=== PATIENT | male | born 1990 | race Caucasian/White ===

== ENCOUNTER 2019-08-20 14:40 | Emergency (ER) | payer OTHER, SELFPAY ==
[2019-08-20 14:44] VITALS: BP 141/85; PULSE 72; RESP 16; TEMP 36.6; O2SAT 100
--- NOTE | 2019-08-20 14:53 | ED.GENADULT ---
HPI - General Adult General Chief complaint: Unspecified Stated complaint: prescription refill Time Seen by Provider: 08/20/19 14:50 Source: patient and RN notes reviewed Mode of arrival: ambulatory Limitations: no limitations History of Present Illness HPI narrative: Patient presents today requesting a refill on his medications. He ran out of all 3 yesterday and has an appointment in 3 days to see his doctor for refills. He needs Wellbutrin 150 mg daily, sertraline 100 mg daily, and BuSpar 15 mg twice daily. Denies any current exacerbation of symptoms or withdrawal symptoms. Denies any current HI, SI, hallucinations. MD complaint: Medication refill Related Data Home Medications Medication Instructions Recorded Confirmed Invega Sustenna 08/20/19 blood sugar diagnostic [True 08/20/19 08/20/19 Metrix Glucose Test Strip] blood-glucose meter [True Metrix 08/20/19 08/20/19 Glucose Meter] bupropion HCl mg PO 08/20/19 buspirone 15 mg 08/20/19 insulin glargine [Adrianaaglsoraida Riggs SUBCUT 08/20/19 U-100 Insulin] insulin lispro 08/20/19 pen needle, diabetic [Easy Touch] 08/20/19 08/20/19 sertraline mg 08/20/19 Allergies Allergy/AdvReac Type Severity Reaction Status Date / Time No Known Allergies Allergy Verified 08/20/19 14:49 Review of Systems Review of Systems: Narrative: CONSTITUTIONAL: Denies body aches, fever, chills, or sweats. EYES: Denies visual changes, redness, or discharge. ENT: Denies rhinorrhea, congestion, sore throat, or otalgia. CARDIOVASCULAR: Denies chest pain, palpitations, or edema. RESPIRATORY: Denies cough or dyspnea. GASTROINTESTINAL: Denies abdominal pain, nausea, vomiting, or diarrhea. GENITOURINARY: Denies dysuria or hematuria. SKIN: Denies rash, itching, or wounds. MUSCULOSKELETAL: Denies back pain, joint pain, or myalgia. NEUROLOGIC: Denies headache, numbness, tingling, or weakness. PSYCH: Denies depression or anxiety. [facility] Past Medical History Medical History (Updated 08/20/19 @ 14:58 by Devika Uribe, [employer], ) Alcoholic pancreatitis Bipolar disorder Depression with anxiety DM type 2 (diabetes mellitus, type 2) OCD (obsessive compulsive disorder) Tourettes disease Surgical History Surgical History Hx of appendectomy Social History Social History Smokeless tobacco user: chewing tobacco Alcohol intake: former Substance use: never Comments At time of signature, I have reviewed and agree with nursing past medical, surgical, social and family history unless otherwise noted. Please see nursing chart for further information. There is no relevant family history pertinent to the presenting complaint Exam Narrative: Exam Narrative: GENERAL: Well-appearing, well-nourished, and in no acute distress. HEAD: Normocephalic, atraumatic. EYES: EOMI. No redness or drainage. Conjunctivae normal. ENT: Mucous membranes pink and moist. NECK: Normal AROM. EXTREMITIES: Normal range of motion. No edema. SKIN: Warm, dry, no rash. Capillary refill normal. Normal skin turgor. NEURO: No focal deficits. Alert and oriented x3. Gait steady. PSYCH: Normal affect. No signs of depression or anxiety. Course Vital Signs Vital signs: Vital Signs Temperature 97.8 F 08/20/19 14:44 Pulse Rate 72 08/20/19 14:44 Respiratory Rate 16 08/20/19 14:44 Blood Pressure 141/85 H 08/20/19 14:44 Pulse Oximetry 100 08/20/19 14:44 Temperature 97.8 F 08/20/19 14:44 Pulse Rate 72 08/20/19 14:44 Respiratory Rate 16 08/20/19 14:44 Blood Pressure 141/85 H 08/20/19 14:44 Pulse Oximetry 100 08/20/19 14:44 Reviewed. Pt has been instructed to follow up with his PCP regarding his elevated blood pressure today. Medical Decision Making Differential Diagnosis Differential Diagnosis: Medication refill, anxiety, depression, Exacerbation of Tourette's, exacerbation
== END 2019-08-20 15:18 | disposition home or self-care (01) ==
PROVIDERS: Emergency Provider Nurse Practitioner
DX: Z76.0 Encounter for issue of repeat prescription (principal); E11.9 Type 2 diabetes mellitus without complications; Z79.4 Long term (current) use of insulin
CPT/HCPCS: 99211; G0463

== ENCOUNTER 2019-11-09 13:32 | Emergency (ER) | payer OTHER, SELFPAY ==
[2019-11-09 13:37] VITALS: BP 65/46; PULSE 71; RESP 18; TEMP 36.6; O2SAT 100
--- NOTE | 2019-11-09 13:40 | ED.EAR ---
HPI - Ear Problem General Stated complaint: right ear pain/feels like liquid in ear Time Seen by Provider: 11/09/19 13:40 Source: patient and RN notes reviewed History of Present Illness HPI Narrative: Patient is a 29-year-old male who initially came to the urgent care with complaints of ear pain and the feeling of liquid behind the ear . By the time patient was in triage he was experiencing an obvious seizure. Patient was unresponsive. Patient was unable to give a complete ROS. Some parts of this dictation were generated by voice recognition software and may contain typographical and/or grammatical inaccuracies. Related Data Home Medications Medication Instructions Recorded Confirmed Invega Sustenna 08/20/19 blood sugar diagnostic [True 08/20/19 08/20/19 Metrix Glucose Test Strip] blood-glucose meter [True Metrix 08/20/19 08/20/19 Glucose Meter] bupropion HCl mg PO 08/20/19 buspirone 15 mg 08/20/19 insulin glargine [Basaglar KwikPen SUBCUT 08/20/19 U-100 Insulin] insulin lispro 08/20/19 pen needle, diabetic [Easy Touch] 08/20/19 08/20/19 sertraline mg 08/20/19 Allergies Allergy/AdvReac Type Severity Reaction Status Date / Time No Known Allergies Allergy Verified 08/20/19 14:49 Review of Systems Review of Systems: Narrative: Patient was unresponsive during initial assessment and unable to obtain ROS. All other systems reviewed are negative, except as documented in HPI. [facility] Past Medical History Medical History (Updated 11/09/19 @ 13:56 by JERRY Barillas) Alcoholic pancreatitis Bipolar disorder Depression with anxiety DM type 2 (diabetes mellitus, type 2) OCD (obsessive compulsive disorder) Tourettes disease Surgical History Surgical History Hx of appendectomy Social History Social History Smokeless tobacco user: chewing tobacco Alcohol intake: former Substance use: never Gender identity (if verbalized by the patient): Male Exam Narrative: Exam Narrative: GENERAL: This is a well-nourished, well-developed patient, diaphoretic HEAD: normocephalic, atraumatic. EYES: PERRL. Sclera clear/white. Vision is grossly intact. EARS: External ears normal NOSE: External nose normal with no obvious nasal discharge, nares without redness, no rhinorrhea. THROAT: Mucous membranes moist NECK: Neck supple CARDIOVASCULAR: Regular rate SKIN: Diaphoretic and flushed NEURO: Seizure activity/postictal during initial assessment EXTREMITIES: No clubbing, cyanosis, or edema. Course Vital Signs Vital signs: Vital Signs Temperature 97.9 F 11/09/19 13:37 Pulse Rate 71 11/09/19 13:37 Respiratory Rate 18 11/09/19 13:37 Blood Pressure 65/46 L 11/09/19 13:37 Pulse Oximetry 100 11/09/19 13:37 Temperature 97.9 F 11/09/19 13:37 Pulse Rate 120 H 11/09/19 13:42 Respiratory Rate 14 11/09/19 13:42 Blood Pressure 109/79 11/09/19 13:42 Pulse Oximetry 99 11/09/19 13:42 Reviewed Transfer Transfered to: [facility] Transportation: ALS Transfer rationale: Seizure activity/diaphoretic Accepting physician: Dr. Beatty Medical Decision Making MDM Narrative Medical decision making narrative: At the time of assessment, while still in triage, patient was having an active seizure and becoming postictal after approximately 1 minute. Patient's blood sugar was 147. Initial blood pressure was low, second blood pressure reading was 109/79. 14 respiration. Patient was unresponsive with initial contact and able to answer simple questions after approximately 1 to 2 minutes. Patient still confused upon discharge with EMS. Patient will go to [facility]. Report given to Devika Reyes RN and accepted by Dr. Beatty. Patient was unstable at the time of discharge. Differential Diagnosis Differential Diagnosis: Hypoglycemia, seizure, URI Vital Signs V
[2019-11-09 13:42] VITALS: BP 109/79; PULSE 120; RESP 14; O2SAT 99
[2019-11-09 13:48] LABS: Glucose Point of Care 147 (65-105)
--- NOTE | 2019-11-09 15:23 | PC.NURSE ---
[id number] this R.N. gave mother, Cora Fernandez, her car in[place].
== END 2019-11-09 13:56 | disposition short-term general hospital (02) ==
PROVIDERS: Emergency Provider Nurse Practitioner Family; PCP Family Medicine
DX: R56.9 Unspecified convulsions (principal); F32.9 Major depressive disorder, single episode, unspecified; F41.9 Anxiety disorder, unspecified; E11.9 Type 2 diabetes mellitus without complications; F95.2 Tourette's disorder; F17.220 Nicotine dependence, chewing tobacco, uncomplicated
CPT/HCPCS: 82948; 99215; G0463

== ENCOUNTER 2020-04-14 15:14 | Emergency (ER) | payer OTHER, SELFPAY ==
[2020-04-14 15:40] VITALS: BP 140/93; PULSE 76; RESP 18; TEMP 36.7; O2SAT 99
--- NOTE | 2020-04-14 16:08 | ED.WOUNDLAC ---
HPI - Wound/Laceration General Chief Complaint: Wound/Laceration Stated Complaint: Infection In Leg Time Seen by Provider: 04/14/20 15:44 Source: patient, RN notes reviewed and old records reviewed Mode of arrival: ambulatory Limitations: no limitations History of Present Illness HPI narrative: Patient presents today with an infection to his right thigh x1 week that has been worsening since onset. States he has been picking the area and reports that he believes there is tunneling to the wound. States he also has an area to his scalp and chin as well as possibly inside his nose. 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 Currently rates his pain to the thigh 08/25. He has tried no [id number] interventions prior to arrival. No recent antibiotic use or fever. History of bipolar disorder, Tourette's syndrome, OCD. Related Data Home Medications Medication Instructions Recorded Confirmed Ramon Malave See Rx Instructions .ROUTE .COMPLEX 08/20/19 11/09/19 bupropion HCl 150 mg PO BID 08/20/19 11/09/19 insulin glargine [Basaglar KwikPen See Rx Instructions .ROUTE .COMPLEX 08/20/19 11/09/19 U-100 Insulin] insulin lispro See Rx Instructions .ROUTE .COMPLEX 08/20/19 11/09/19 buspirone See Rx Instructions .ROUTE .COMPLEX 11/09/19 11/09/19 buspirone See Rx Instructions .ROUTE .COMPLEX 11/09/19 11/09/19 famotidine 40 mg PO DAILY 11/09/19 11/09/19 [id number] [Creon] See Rx Instructions .ROUTE .COMPLEX 11/09/19 11/09/19 terbinafine HCl 250 mg PO DAILY 11/09/19 11/09/19 tramadol 50 mg PO BID PRN 11/09/19 11/09/19 Allergies Allergy/AdvReac Type Severity Reaction Status Date / Time No Known Allergies Allergy Verified 04/14/20 15:29 Review of Systems Review of Systems: Narrative: CONSTITUTIONAL: Denies body aches, fever, chills, or sweats. EYES: Denies visual changes, redness, or discharge. ENT: Denies rhinorrhea, congestion, sore throat, or otalgia. CARDIOVASCULAR: Denies chest pain, palpitations, or edema. RESPIRATORY: Denies cough or dyspnea. GASTROINTESTINAL: Denies abdominal pain, nausea, vomiting, or diarrhea. GENITOURINARY: Denies dysuria or hematuria. SKIN: Denies rash, itching. + Wound to right thigh, scalp, chin MUSCULOSKELETAL: Denies back pain, joint pain, or myalgia. NEUROLOGIC: Denies headache, numbness, tingling, or weakness. PSYCH: Denies depression or anxiety. [facility] Past Medical History Medical History (Updated 04/14/20 @ 16:11 by Devika Uribe, [facility], ) Alcoholic pancreatitis Bipolar disorder Depression with anxiety DM type 2 (diabetes mellitus, type 2) OCD (obsessive compulsive disorder) Tourettes disease Surgical History Surgical History Hx of appendectomy Social History Social History Smokeless tobacco user: chewing tobacco Alcohol intake: former Substance use: never Gender identity (if verbalized by the patient): Male Comments At time of signature, I have reviewed and agree with nursing past medical, surgical, social and family history unless otherwise noted. Please see nursing chart for further information. There is no relevant family history pertinent to the presenting complaint Exam Narrative: Exam Narrative: GENERAL: Well-appearing, well-nourished, and in no acute distress. HEAD: Normocephalic, atraumatic. EYES: EOMI. No redness or drainage. Conjunctivae normal. ENT: Mucous membranes pink and moist. Nares clear. There is some irritation to the left nare, however, I am unsure if this is because patient has been picking the inside of his nose like he is done after my arrival in the exam room. No honey crusting or obvious signs of cellulitis are noted to the external nose. No rhinorrhea. NECK: Normal AROM. CHEST: No respiratory distress. EXTREMITIES: Normal range of motion. No edema. SKIN: Warm, no rash. Capillary refill normal. Normal skin turgor. Patient has a 9 x 7cm a
== END 2020-04-14 16:15 | disposition home or self-care (01) ==
PROVIDERS: Emergency Provider Nurse Practitioner
DX: L03.115 Cellulitis of right lower limb (principal); S71.101A Unspecified open wound, right thigh, initial encounter; X58.XXXA Exposure to other specified factors, initial encounter; E11.9 Type 2 diabetes mellitus without complications; F95.2 Tourette's disorder; F32.9 Major depressive disorder, single episode, unspecified; Z86.14 Personal history of Methicillin resistant Staphylococcus aureus infection
CPT/HCPCS: 99213; G0463

== ENCOUNTER 2020-08-19 04:44 | Emergency (ER) | payer OTHER, SELFPAY ==
--- NOTE | ~2020-08-19 | CT_ITS ---
EXAMINATION: CT abdomen pelvis w con INDICATION: Nausea, vomiting, diarrhea, left lower quadrant pain TECHNIQUE: Computed tomographic images of the abdomen and pelvis were obtained after the administrati on of 100 cc of Omnipaque 350 intravenous contrast. The dose-length product (DLP) was 1065.37 mGy-cm. Automated exposure control and iterative reconstruction technique were employed. COMPARISON: 03/05/2019 FINDINGS: Minimal dependent atelectasis is present in the lung bases. The heart size is normal. The l iver, spleen, pancreas, and adrenal glands are normal. There is mild distention of the gallbladder. T he kidneys are unremarkable. There is an approximately 4.7 x 1.9 cm infiltrating soft tissue mass in the small bowel mesentery (image 80). There is mild mesenteric lymphadenopathy. There is no free intr aperitoneal gas or evidence of bowel obstruction. The appendix is surgically absent. The visualized o sseous structures are unremarkable. IMPRESSION: 1. Mild gallbladder distention. Correlate for right upper quadrant pain. 2. Infiltrating soft tissue mass of the small bowel mesentery which could reflect desmoid tumor, carc inoid tumor, or sequela of prior infection/inflammation such as pancreatitis. Reviewed, dictated and finalized at location A. IMPRESSION: 1. Mild gallbladder distention. Correlate for right upper quadrant pain. 2. Infiltrating soft tissue mass of the small bowel mesentery which could refle ct desmoid tumor, carcinoid tumor, or sequela of prior infection/inflammation s uch as pancreatitis.
[2020-08-19 04:41] VITALS: BP 130/88; PULSE 115; RESP 20; TEMP 36.2; O2SAT 99
--- NOTE | 2020-08-19 04:50 | PC.NURSE ---
pt here c ems reporting called for llq pain with assoc. diarrhea and nausea. pt reports x 1 episode of diarrrhea. last etoh reported 2017
[2020-08-19] MEDS: MORPHINE SULFATE (*CRX) 4 MG/ML INJ IV PUSH (05:11)
[2020-08-19] MEDS: SODIUM CHLORIDE 0.9% IV 1,000 ML 999 ML IV CONT (05:12)
[2020-08-19] MEDS: ONDANSETRON INJ 4 MG/2 ML VIAL IV PUSH (05:12)
[2020-08-19 05:14] LABS: Basophils Percent Auto 0.6 % (0.2-1.2); Eosinophils Absolute Auto 0.1 K/mm3 (0-0.3); Eosinophils Percent Auto 1.7 % (0-4.4); Hematocrit 41.9 % (42.0-52.0); Hemoglobin 13.9 g/dL (14.0-18.0); Immature Granulocyte Absolute 0.01 K/mm3 (0.00-0.031); Immature Granulocyte Percent A 0.2 % (0-0.5); Lymphocytes Absolute Auto 1.75 K/mm3 (0.9-3.2); Lymphocytes Percent Auto 26.5 % (18.3-44.2); Mean Corpuscular HGB Conc 33.2 g/dl (32-36); Mean Corpuscular Hemoglobin 27.9 pg (26-34); Mean Corpuscular Volume 84.1 fl (80-100); Mean Platelet Volume 9.3 fl (7.4-10.4); Monocytes Absolute Auto 0.4 K/mm3 (0.1-0.6); Monocytes Percent Auto 6.1 % (2.6-8.5); Neutrophils Absolute Auto 4.3 K/mm3 (1.3-6.7); Neutrophils Percent Auto 64.9 % (45.5-73.1); Platelet Count Result 200 k/mm3 (150-375); Red Blood Count 4.98 M/mm3 (4.6-6.20); Red Cell Distribution Width 12.6 % (11.5-14.5); White Blood Count 6.6 K/mm3 (4.5-10.0)
[2020-08-19 05:22] LABS: Alanine Aminotransferase 17 U/L (4-50); Albumin Level 4.6 g/dL (3.5-5.1); Alkaline Phosphatase 93 U/L (38-126); Anion Gap 7 mmol/L (8-16); Aspartate Amino Transferase 20 U/L (17-59); Bilirubin,Total 0.4 mg/dL (0.2-1.3); Blood Urea Nitrogen 15 mg/dL (9-20); Calcium 9.8 mg/dL (8.4-10.2); Carbon Dioxide 28 mmol/L (22-30); Chloride 106 mmol/L (98-107); Estimated CRCL calculation 103 ml/min; Estimated Glomerular Filt Rate > 60; Glucose 93 mg/dL (75-110); Lipase 24 U/L (23-300); Potassium 3.6 mmol/L (3.4-5.0); Sodium 141 mmol/L (137-145)
[2020-08-19 05:57] VITALS: BP 128/80; PULSE 94; RESP 18; O2SAT 98
--- NOTE | 2020-08-19 06:32 | ED.GENADULT ---
HPI - General Adult General Chief complaint: Abdominal Pain Stated complaint: abd pain Time Seen by Provider: 08/19/20 04:46 History of Present Illness HPI narrative: Patient is a 30-year-old male with history of chronic pancreatitis who presents ER with abdominal cramping. Mainly in the epigastrium and bilateral lower quadrants. No radiation. Sudden onset 1 hour prior to arrival. Mild nausea without vomiting. No fevers or chills or sweats. No aggravating or alleviating factors. Has not been drinking alcohol. Also reports some chronic chest pain for which she sees a GI specialist at [facility]. Patient reports soft tissue tumor of unknown location that one of his doctors is following. Related Data Home Medications Medication Instructions Recorded Confirmed Invega Gianaenna See Rx Instructions .ROUTE .COMPLEX 08/20/19 11/09/19 bupropion HCl 150 mg PO BID 08/20/19 11/09/19 insulin glargine [Basaglar KwikPen See Rx Instructions .ROUTE .COMPLEX 08/20/19 11/09/19 U-100 Insulin] insulin lispro See Rx Instructions .ROUTE .COMPLEX 08/20/19 11/09/19 buspirone See Rx Instructions .ROUTE .COMPLEX 11/09/19 11/09/19 buspirone See Rx Instructions .ROUTE .COMPLEX 11/09/19 11/09/19 famotidine 40 mg PO DAILY 11/09/19 11/09/19 [id number] [Creon] See Rx Instructions .ROUTE .COMPLEX 11/09/19 11/09/19 terbinafine HCl 250 mg PO DAILY 11/09/19 11/09/19 tramadol 50 mg PO BID PRN 11/09/19 11/09/19 Allergies Allergy/AdvReac Type Severity Reaction Status Date / Time No Known Allergies Allergy Verified 04/14/20 15:29 Review of Systems Review of Systems: All systems reviewed & are unremarkable except as noted in HPI and below Constitutional: Constitutional: Denies chills, Denies fever(s) and Denies weakness ENT: Denies nasal congestion and Denies sore throat Cardiovascular: Cardiovascular: Denies chest pain and Denies radiating jaw, neck or arm pain Gastrointestinal: Gastrointestinal: Reports abdominal pain, Reports nausea and Denies vomiting [facility] Past Medical History Medical History (Updated 08/19/20 @ 06:42 by Terry Hayes MD) Alcoholic pancreatitis Bipolar disorder Depression with anxiety DM type 2 (diabetes mellitus, type 2) OCD (obsessive compulsive disorder) Tourettes disease Surgical History Surgical History Hx of appendectomy Social History Social History Smokeless tobacco user: chewing tobacco Alcohol intake: former Substance use: never Gender identity (if verbalized by the patient): Male Exam Narrative: Exam Narrative: GENERAL: Uncomfortable-appearing, well-nourished, and in no acute distress. HEAD: Normocephalic, atraumatic. ENT: Mucous membranes moist. CHEST: Clear to auscultation. No respiratory distress. HEART: Regular rate and rhythm. Normal peripheral pulses. ABDOMEN: Soft, tender palpation bilateral lower quadrants and epigastrium with voluntary guarding nondistended. EXTREMITIES: Normal range of motion. No edema. SKIN: Warm, dry, no rash. NEURO: Alert and oriented x3. PSYCH: Normal mood and affect. Course Course Emergency Course: Symptoms improved with medications and fluids. Informed of CT and lab results. Discharge home. Vital Signs Vital signs: Vital Signs Temperature 97.1 F L 08/19/20 04:41 Pulse Rate 115 H 08/19/20 04:41 Respiratory Rate 20 08/19/20 04:41 Blood Pressure 130/88 08/19/20 04:41 Pulse Oximetry 99 08/19/20 04:41 Temperature 97.1 F L 08/19/20 04:41 Pulse Rate 94 08/19/20 05:57 Respiratory Rate 18 08/19/20 05:57 Blood Pressure 128/80 08/19/20 05:57 Pulse Oximetry 98 08/19/20 05:57 Medical Decision Making Vital Signs Vital Signs: Vital Signs Temperature 97.1 F L 08/19/20 04:41 Pulse Rate 115 H 08/19/20 04:41 Respiratory Rate 20 08/19/20 04:41 Blood Pressure 130/88 08/19/20 04:41 Pulse Oximetry 99
== END 2020-08-19 07:01 | disposition home or self-care (01) ==
PROVIDERS: Emergency Provider Emergency Medicine
DX: R10.13 Epigastric pain (principal); F31.9 Bipolar disorder, unspecified; E11.9 Type 2 diabetes mellitus without complications; F41.9 Anxiety disorder, unspecified; Z79.4 Long term (current) use of insulin
CPT/HCPCS: 36415; 74177; 80053; 83690; 85025; 96361; 96374; 96375; 99284; J2270; J2405; J7030; Q9967

== ENCOUNTER 2020-08-30 03:28 | Emergency (ER) | payer OTHER, SELFPAY ==
--- NOTE | ~2020-08-30 | XR_ITS ---
EXAMINATION: XR chest 1V portable DATE: 08/30/2020 04:15 INDICATION: Chest pain. TECHNIQUE: A single frontal view of the chest was obtained. COMPARISON: CT abdomen and pelvis 08/19/2020 FINDINGS: There is mild atelectasis at right lung base. No pleural effusion or pneumothorax. The hear t size is normal. IMPRESSION: 1. Mild atelectasis at right lung base. Reviewed, dictated and finalized at location A.
[2020-08-30 03:36] VITALS: BP 132/90; PULSE 89; RESP 18; TEMP 36.4; O2SAT 98
--- NOTE | 2020-08-30 03:36 | ECG_ITS ---
Measurements Intervals Remlap Rate: 117 P: 35 GA: 157 QRS: 48 QRSD: 114 T: 33 QT: 341 QTc: 476 Interpretive Statements SINUS TACHYCARDIA INTRAVENTRICULAR CONDUCTION DELAY MINIMAL Q WAVES- INFERIOR LEADS BORDERLINE T WAVE ABNORMALITY- ANT/HIGH LAT LEADS ABNORMAL ECG Electronically Signed On 08-30-2020 8:15:29 CDT by Gildardo Casey D.O.
--- NOTE | 2020-08-30 03:50 | ED.GENADULT ---
HPI - General Adult General Chief complaint: Unspecified Stated complaint: Chest pain Source: patient Mode of arrival: ambulatory History of Present Illness HPI narrative: Christiano is a 30M with a PMH of alcoholic pancreatitis, chronic pancreatitis, chewing tobacco use, bipolar disorder, anxiety, OCD, and DMII that presented to the ED with chest pain. He has a squeezing chest pain that radiates down his left arm. It is associated with nausea, but no vomiting. He has lightheadedness but no syncope. He took a Vicodin but this did not help. It is better with rest. Related Data Home Medications Medication Instructions Recorded Confirmed Invega Sustenna See Rx Instructions .ROUTE .COMPLEX 08/20/19 08/30/20 bupropion HCl 150 mg PO BID 08/20/19 08/30/20 insulin lispro See Rx Instructions .ROUTE .COMPLEX 08/20/19 08/30/20 buspirone See Rx Instructions .ROUTE .COMPLEX 11/09/19 08/30/20 buspirone See Rx Instructions .ROUTE .COMPLEX 11/09/19 08/30/20 famotidine 40 mg PO DAILY 11/09/19 08/30/20 [id number] [Creon] See Rx Instructions .ROUTE .COMPLEX 11/09/19 08/30/20 tramadol 50 mg PO BID PRN 11/09/19 08/30/20 Allergies Allergy/AdvReac Type Severity Reaction Status Date / Time No Known Allergies Allergy Verified 04/14/20 15:29 Review of Systems Constitutional: Constitutional: Reports no additional constitutional complaints and Denies body ache(s) Eyes: Eyes: Reports no additional eye complaints ENT: Reports system reviewed and no additional complaints, except as documented Cardiovascular: Cardiovascular: Reports as per HPI Respiratory: Respiratory: Reports no additional respiratory complaints Gastrointestinal: Gastrointestinal: Reports no additional gastrointestinal complaints Genitourinary: Genitourinary: Reports no additional male genitourinary complaints Musculoskeletal: Musculoskeletal: Reports no additional musculoskeletal complaints Integumentary/Breasts: Skin/Breast: Reports system reviewed and no additional complaints, except as docu Neurologic: Reports system reviewed and no additional complaints, except as documented Psychiatric: Psychiatric: Reports no additional psychiatric complaints Endocrine: Endocrine: Reports no additional endocrine complaints Hematologic/Lymphatic: Hematologic/Lymphatic: Reports no additional hematologic/lymphatic complaints Allergic/Immunologic: Allergic/Immunologic: Reports no additional allergic/immunologic complaints PMFSH Past Medical History Medical History Alcoholic pancreatitis Bipolar disorder Depression with anxiety DM type 2 (diabetes mellitus, type 2) OCD (obsessive compulsive disorder) Tourettes disease Surgical History Surgical History Hx of appendectomy Social History Social History Smokeless tobacco user: chewing tobacco Alcohol intake: former Substance use: never Gender identity (if verbalized by the patient): Male Exam Const: General: cooperative, healthy appearing, comfortable and no acute distress HENMT: Head: normal to inspection, normocephalic and atraumatic Eyes: General: appearance normal, both eyes and all related structures Neck: Neck: normal visual inspection Chest: Chest palpation & inspection: normal inspection of the chest Resp: Effort & Inspection: normal respiratory effort Auscultation: clear to auscultation bilaterally Cardio: Rate: regular rate Rhythm: regular rhythm Peripheral pulses: Peripheral pulses 2+ throughout GI: Inspection: normal to inspection GI Palp: No abdominal tenderness Auscultation: normal bowel sounds Skin: General skin exam: normal color Lesions: no lesions Rashes: no rashes Neuro: General: oriented to person, oriented to place and oriented to time Cranial nerves: Yes CN's II-XII intact bilaterally Extrem: General:
[2020-08-30] MEDS: NITROGLYCERIN SL 0.4 MG TABLET SUBLINGUAL ×2 (03:57→04:11)
[2020-08-30 04:03] LABS: Basophils Absolute Auto 0.03 K/mm3 (0.00-0.10); Basophils Percent Auto 0.4 % (0.0-1.0); Eosinophils Percent Auto 1.5 % (1.0-6.0); Hematocrit 40.3 % (40.0-54.0); Hemoglobin 13.5 g/dL (14.0-18.0); Immature Granulocyte Absolute 0.03 K/mm3 (0.00-0.00); Immature Granulocyte Percent A 0.4 % (0.0-0.0); Lymphocytes Absolute Auto 0.99 K/mm3 (1.10-4.50); Lymphocytes Percent Auto 14.6 % (18.0-42.0); Mean Corpuscular HGB Conc 33.5 g/dL (32.0-36.0); Mean Corpuscular Hemoglobin 28.1 pg (27.0-31.0); Mean Platelet Volume 9.5 fl (8.7-11.0); Monocytes Absolute Auto 0.33 K/mm3 (0.10-0.90); Monocytes Percent Auto 4.9 % (2.0-11.0); Neutrophils Absolute Auto 5.3 K/mm3 (1.7-7.2); Neutrophils Percent Auto 78.2 % (50.0-70.0); Platelet Count Result 189 K/mm3 (150-420); Red Cell Distribution Width 13.1 % (11.6-14.4); White Blood Count 6.8 K/mm3 (4.8-10.8)
[2020-08-30 04:13] VITALS: BP 119/71; PULSE 110; RESP 18; O2SAT 95
--- NOTE | 2020-08-30 04:13 | PC.NURSE ---
patient sleeping, woke to take vitals and patient states chest tightness returning, MD aware 2nd nitro given
[2020-08-30 04:17] LABS: Prothrombin Time 10.2 Seconds (9.50-12.10)
[2020-08-30 04:26] LABS: Alanine Aminotransferase 21 U/L (16-63); Albumin Level 3.8 g/dL (3.4-5.0); Alkaline Phosphatase 84 U/L (46-116); Anion Gap 12 mmol/L (8-16); Aspartate Amino Transferase < 10 U/L (15-37); Bilirubin,Total 0.2 mg/dL (0.00-1.00); Blood Urea Nitrogen 16 mg/dL (7-18); Calcium 8.8 mg/dL (8.5-10.1); Carbon Dioxide 25 mmol/L (21-32); Chloride 100 mmol/L (98-108); Estimated CRCL calculation 89 ml/min; Estimated Glomerular Filt Rate > 60; Glucose 393 mg/dL (70-99); Lipase 35 U/L (73-393); NT Pro B Type Natriuretic Pept 12 pg/mL (0-125); Osmolality Calculated 301 mOsm/kg (285-295); Sodium 137 mmol/L (136-145); Total Protein 6.9 g/dL (6.4-8.2)
[2020-08-30 04:28] LABS: Troponin I < 4.0 ng/L (0.00-60.4)
--- NOTE | 2020-08-30 04:42 | PC.NURSE ---
pt sleeping no pain
[2020-08-30] MEDS: MAG HYDROX/ALUMINUM HYD/SIMETH 30 ML, PHENobarb/HYOSCY/ATROPINE/SCOP 32.4 MG, LIDOCAINE... PO (04:49)
--- NOTE | 2020-08-30 04:52 | PC.NURSE ---
patient sleeping woke for GI cocktail
[2020-08-30 05:01] VITALS: BP 105/60; PULSE 92; RESP 20; O2SAT 95
[2020-08-30] MEDS: LORazepam INJ (*CRX) 2 MG/ML VIAL 1 MG IV PUSH (05:09)
[2020-08-30 05:32] VITALS: BP 130/88; PULSE 90; RESP 20; TEMP 36.6; O2SAT 98
== END 2020-08-30 05:58 | disposition home or self-care (01) ==
PROVIDERS: Emergency Provider Family Medicine
DX: R07.9 Chest pain, unspecified (principal)
CPT/HCPCS: 36415; 71045; 80053; 83690; 83880; 84484; 85025; 85610; 93005; 96374; 99283; 99284; A9270; J2060

== ENCOUNTER 2020-09-03 03:08 | Emergency (ER) | payer OTHER, SELFPAY ==
--- NOTE | ~2020-09-03 | CT_ITS ---
EXAMINATION: CT abdomen pelvis w con DATE: 09/03/2020 05:45 INDICATION: Abdominal pain TECHNIQUE: Computed tomography (CT) of the abdomen and pelvis was performed with 100 cc Omnipaque 350 intravenous contrast. Automated exposure control and iterative reconstruction technique were employe d. Exam dose: 1235.47 mGy-cm total exam DLP. COMPARISON: 08/2020 CT abdomen pelvis FINDINGS: Normal heart size. No pericardial or pleural effusion. The lung bases are clear of infiltra te or consolidation. The liver, spleen, gallbladder, bile ducts, pancreas and pancreatic duct as well as adrenal glands an d kidneys are unremarkable. Normal caliber of the abdominal aorta. There is no significant change of the soft tissue density within the mesenteric fat at the root of th e mesentery since 08/19/2020. There are multiple shotty nonenlarged mesenteric lymph nodes. Differentia l diagnosis includes desmoid tumor, carcinoid tumor, metastatic tumor infiltration from pancreatic, g astric or colon cancer, lymphoma or infectious or inflammatory change including pancreatitis, scleros ing mesenteritis. Status post appendectomy. Mild diverticulosis of left and right colon. IMPRESSION: No significant change of soft tissue infiltration of mesentery since 08/19/2020; differenti al diagnosis given above Reviewed, dictated and finalized at [facility]. Reviewed, dictated and finalized at [facility]. IMPRESSION: No significant change of soft tissue infiltration of mesentery sinc e 08/19/2020; differential diagnosis given above
[2020-09-03 03:13] VITALS: BP 145/98; PULSE 100; RESP 20; TEMP 36.3; O2SAT 100
--- NOTE | 2020-09-03 03:18 | ED.GENADULT ---
HPI - General Adult General Chief complaint: Abdominal Pain <Jorge Tomlin MD - Last Filed: 09/03/20 03:19> Stated complaint: abd pain and neck pain ? <Jorge Tomlin MD - Last Filed: 09/03/20 03:19> Time Seen by Provider: 09/03/20 03:13 <Jorge Tomlin MD - Last Filed: 09/03/20 03:19> History of Present Illness HPI narrative: Patient 30-year-old gentleman who presents to emergency department with chief complaint of abdominal pain. Patient reports he has history of pancreatitis and started having pain in the epigastrium and left upper quadrant the patient states that it is sharp reports not improved by anything nor is it worsened by anything the patient reports has had some nausea with this reports this feels similar to whenever he has had pancreatitis before in the past. Patient reports he was seen in the emergency department last a day or 2 for similar symptoms <Jorge Tomlin MD - Last Filed: 09/03/20 03:19> Related Data Home medications: Home Medications Medication Instructions Recorded Confirmed Ramon Malave See Rx Instructions .ROUTE .COMPLEX 08/20/19 08/30/20 bupropion HCl 150 mg PO BID 08/20/19 08/30/20 insulin lispro See Rx Instructions .ROUTE .COMPLEX 08/20/19 08/30/20 buspirone See Rx Instructions .ROUTE .COMPLEX 11/09/19 08/30/20 buspirone See Rx Instructions .ROUTE .COMPLEX 11/09/19 08/30/20 famotidine 40 mg PO DAILY 11/09/19 08/30/20 [id number] [Creon] See Rx Instructions .ROUTE .COMPLEX 11/09/19 08/30/20 tramadol 50 mg PO BID PRN 11/09/19 08/30/20 <Jorge Tomlin MD - Last Filed: 09/03/20 03:19> Allergies/adverse reactions: Allergies Allergy/AdvReac Type Severity Reaction Status Date / Time No Known Allergies Allergy Verified 04/14/20 15:29 <Jorge Tomlin MD - Last Filed: 09/03/20 03:19> Review of Systems Review of Systems: Narrative: A 10 system review of systems was completed on the patient and is negative except for what is stated in the HPI. Nursing and ancillary documentation was reviewed. <Jorge Tomlin MD - Last Filed: 09/03/20 03:19> PMFSH Past Medical History Medical History: Medical History Alcoholic pancreatitis Bipolar disorder Depression with anxiety DM type 2 (diabetes mellitus, type 2) OCD (obsessive compulsive disorder) Tourettes disease <Jorge Tomlin MD - Last Filed: 09/03/20 03:19> Surgical History Surgical History: Surgical History Hx of appendectomy <Jorge Tomlin MD - Last Filed: 09/03/20 03:19> Social History Social History: Social History Smokeless tobacco user: chewing tobacco Alcohol intake: former Substance use: never Gender identity (if verbalized by the patient): Male <Jorge Tomlin MD - Last Filed: 09/03/20 03:19> Exam Narrative: Exam Narrative: GENERAL: Well-appearing, well-nourished, and in no acute distress. HEAD: Normocephalic, atraumatic. EYES: PERRLA and EOMI. ENT: Nares clear, no rhinorrhea or epistaxis. Mucous membranes moist. NECK: Supple. CHEST: Clear to auscultation. No respiratory distress. HEART: Regular rate and rhythm. No murmur heard. Normal peripheral pulses. ABDOMEN: Soft, tender to palpation in the epigastrium and left upper quadrant, nondistended, normal active bowel sounds. EXTREMITIES: Normal range of motion. No edema. SKIN: Warm, dry, no rash. NEURO: No focal deficits. Alert and oriented x3. PSYCH: Normal mood and affect. <Jorge Tomlin MD - Last Filed: 09/03/20 03:19> Course Vital Signs Vital signs: Vital Signs Temperature 36.3 C L 09/03/20 03:13 Pulse Rate 100 09/03/20 03:13 Respiratory Rate 20 09/03/20 03:13 Blood Pressure 1
[2020-09-03] MEDS: SODIUM CHLORIDE 0.9% IV 1,000 ML 999 ML IV CONT (03:39)
[2020-09-03] MEDS: ONDANSETRON INJ 4 MG/2 ML VIAL IV PUSH (03:39)
[2020-09-03] MEDS: MORPHINE SULFATE (*CRX) 4 MG/ML INJ IV PUSH ×2 (03:39→05:12)
[2020-09-03 03:46] LABS: Alanine Aminotransferase 19 U/L (4-50); Albumin Level 4.3 g/dL (3.5-5.1); Alkaline Phosphatase 75 U/L (38-126); Anion Gap 8 mmol/L (8-16); Aspartate Amino Transferase 24 U/L (17-59); Bilirubin,Total 0.4 mg/dL (0.2-1.3); Blood Urea Nitrogen 16 mg/dL (9-20); Calcium 9.5 mg/dL (8.4-10.2); Carbon Dioxide 28 mmol/L (22-30); Chloride 101 mmol/L (98-107); Estimated CRCL calculation 88 ml/min; Estimated Glomerular Filt Rate > 60; Ethanol < 10 mg/dL (<10); Glucose 191 mg/dL (65-110); Lipase 39 U/L (23-300); Potassium 4.2 mmol/L (3.4-5.0); Sodium 137 mmol/L (137-145)
[2020-09-03 04:06] VITALS: BP 132/93; PULSE 78; RESP 18; O2SAT 97
[2020-09-03 04:14] LABS: Basophils Percent Auto 0.6 % (0.2-1.2); Eosinophils Absolute Auto 0.2 K/mm3 (0-0.3); Eosinophils Percent Auto 3.1 % (0-4.4); Hematocrit 42.1 % (42.0-52.0); Hemoglobin 13.4 g/dL (14.0-18.0); Immature Granulocyte Absolute 0.02 K/mm3 (0.00-0.031); Immature Granulocyte Percent A 0.3 % (0-0.5); Lymphocytes Absolute Auto 2.25 K/mm3 (0.9-3.2); Lymphocytes Percent Auto 36.5 % (18.3-44.2); Mean Corpuscular HGB Conc 31.8 g/dl (32-36); Mean Corpuscular Hemoglobin 27.8 pg (26-34); Mean Corpuscular Volume 87.3 fl (80-100); Mean Platelet Volume 9.5 fl (7.4-10.4); Monocytes Absolute Auto 0.4 K/mm3 (0.1-0.6); Monocytes Percent Auto 6.3 % (2.6-8.5); Neutrophils Absolute Auto 3.3 K/mm3 (1.3-6.7); Neutrophils Percent Auto 53.2 % (45.5-73.1); Platelet Count Result 200 k/mm3 (150-375); Red Blood Count 4.82 M/mm3 (4.6-6.20); Red Cell Distribution Width 13.2 % (11.5-14.5); White Blood Count 6.2 K/mm3 (4.5-10.0)
[2020-09-03 05:05] VITALS: BP 126/87; PULSE 81; RESP 18; O2SAT 98
[2020-09-03 05:10] LABS: Add Urine Microscopic? NO; Appearance Urine Clear (Clear); Bilirubin Urine Negative (Negative); Blood Urine Negative (Negative); Color Urine Straw (Yellow); Glucose Urine UA Negative (Negative); Ketones Urine Negative (Negative); Leukocyte Esterase Ur Negative LEU/UL (Negative); Nitrate Urine Negative (Negative); Protein Urine Negative (Negative); Specific Grav Ur 1.009 (1.001-1.035); Urobilinogen Urine Negative mg/dL (<2.0)
[2020-09-03] MEDS: diphenhydrAMINE HCl INJ 50 MG/ML VIAL IV PUSH (06:00)
[2020-09-03 06:01] VITALS: BP 131/89; PULSE 89; RESP 18; O2SAT 95
[2020-09-03 08:07] VITALS: BP 110/67; PULSE 80; RESP 16; O2SAT 100
== END 2020-09-03 08:08 | disposition home or self-care (01) ==
PROVIDERS: Emergency Medicine; Emergency Provider Emergency Medicine
DX: K29.70 Gastritis, unspecified, without bleeding (principal); E11.9 Type 2 diabetes mellitus without complications; F17.220 Nicotine dependence, chewing tobacco, uncomplicated; Z79.4 Long term (current) use of insulin
CPT/HCPCS: 36415; 74177; 80053; 80307; 81003; 83690; 85025; 96361; 96374; 96375; 96376; 99284; J1200; J2270; J2405; J7030; Q9967

== ENCOUNTER 2020-10-06 15:06 | Emergency (ER) | payer OTHER, SELFPAY ==
[2020-10-06 15:20] VITALS: BP 117/81; PULSE 97; RESP 18; TEMP 37.1; O2SAT 97
--- NOTE | 2020-10-06 15:56 | ED.SKABFB ---
HPI - Skin/Abscess/Foreign Bdy General Chief complaint: Skin/Abscess/Foreign Body Stated complaint: Sores and pain on left side of Face/ behind Ear Time Seen by Provider: 10/06/20 15:55 Source: patient Mode of arrival: ambulatory Limitations: no limitations History of Present Illness HPI narrative: Christiano Fernandez is a 30 yo male with pancraetitis, OCD, DM, ADHD, Tourettes, here for what he believes to be impetigo and has sores on the left side of his face and behind his ear. He was seen by his primary care physician few weeks ago and given antibiotic ointment probably some type of near mupirocin but the source is not resolved and he is here for further treatment Patient states he saw his primary on Thursday and they gave him some ointment has done nothing for the pain and they have continued to get worse sores almost look shingles like but has been using that cream multiple times a day he states he has never had pain this bad has been laying in bed because of the pain most of the time Related Data Home Medications Medication Instructions Recorded Confirmed Ramon Malave See Rx Instructions .ROUTE .COMPLEX 08/20/19 10/06/20 bupropion HCl 150 mg PO BID 08/20/19 10/06/20 insulin lispro See Rx Instructions .ROUTE .COMPLEX 08/20/19 10/06/20 buspirone See Rx Instructions .ROUTE .COMPLEX 11/09/19 10/06/20 buspirone See Rx Instructions .ROUTE .COMPLEX 11/09/19 10/06/20 famotidine 40 mg PO DAILY 11/09/19 10/06/20 [id number] [Creon] See Rx Instructions .ROUTE .COMPLEX 11/09/19 10/06/20 tramadol 50 mg PO BID PRN 11/09/19 10/06/20 Allergies Allergy/AdvReac Type Severity Reaction Status Date / Time No Known Allergies Allergy Verified 10/06/20 15:21 Review of Systems Review of Systems: CONSTITUTIONAL: Denies fever, chills, sweats. EYES: Denies visual changes, redness, discharge. ENT: Denies rhinorrhea, congestion, sore throat, otalgia. CARDIOVASCULAR: Denies chest pain, palpitations, edema. RESPIRATORY: Denies dyspnea, wheezing, cough GASTROINTESTINAL: Denies abdominal pain, nausea, vomiting, diarrhea. GENITOURINARY: Denies dysuria, hematuria, abnormal discharge SKIN: Denies rash or itching. Sores on the left side of face and behind left ear NEUROLOGIC: Denies numbness, or focal weakness. PSYCHIATRIC: Denies anxiety or depression. [facility] Past Medical History Medical History Alcoholic pancreatitis Bipolar disorder Depression with anxiety DM type 2 (diabetes mellitus, type 2) OCD (obsessive compulsive disorder) Tourettes disease Surgical History Surgical History Hx of appendectomy Social History Social History Smokeless tobacco user: chewing tobacco Alcohol intake: former Substance use: never Gender identity (if verbalized by the patient): Male Comments At time of signature, I agree with nursing past medical, surgical, social and family history. There is no relevant family history pertinent to the presenting complaint. Exam Narrative: GENERAL: This is a well-nourished, well-developed patient, in moderate distress. HEAD: normocephalic, atraumatic. EYES: Sclera clear/white. Vision is grossly intact. EARS: External ears normal,. Hearing grossly intact. NOSE: External nose normal without nasal discharge, nares without redness, no rhinorrhea. THROAT: Mucous membranes moist, posterior pharynx NECK: Neck supple, non-tender CARDIOVASCULAR: Regular rate and rhythm without murmurs, gallops, or rubs. RESPIRATORY: Clear to auscultation. Breath sounds equal bilaterally. No wheezes, rales, or rhonchi. GASTROINTESTINAL: Abdomen soft, non-tender, SKIN: warm, intact with no suspicious lesions or rash, good texture and turgor. Sores behind left ear and in left nares he has 1 midline and across the midline lip but is complaining of 10/10 pain NEURO: aw
== END 2020-10-06 16:20 | disposition home or self-care (01) ==
PROVIDERS: Emergency Provider Nurse Practitioner
DX: L03.211 Cellulitis of face (principal); E11.9 Type 2 diabetes mellitus without complications; F41.8 Other specified anxiety disorders; F17.220 Nicotine dependence, chewing tobacco, uncomplicated; Z79.4 Long term (current) use of insulin
CPT/HCPCS: 99213; G0463

== ENCOUNTER 2020-10-25 02:12 | Emergency (ER) | payer OTHER, SELFPAY ==
--- NOTE | ~2020-10-25 | XR_ITS ---
EXAMINATION: XR chest 1V portable DATE: 10/25/2020 03:05 INDICATION: Cough and shortness of breath. COVID-19 diagnosis 2 weeks ago. TECHNIQUE: A single frontal view of the chest was obtained. COMPARISON: Chest single view 08/30/2020, CT abdomen and pelvis 09/03/2020 FINDINGS: The chest demonstrates clear lungs without pneumonia, pleural effusion, or pneumothorax. Th e heart size is normal. IMPRESSION: 1. No acute cardiopulmonary disease. Reviewed, dictated and finalized at [facility].
[2020-10-25 02:23] VITALS: BP 141/95; PULSE 98; RESP 19; TEMP 36.6; O2SAT 100
--- NOTE | 2020-10-25 02:37 | PC.NURSE ---
Report to LUIS Garcia, to continue care.
--- NOTE | 2020-10-25 02:55 | ED.URI ---
HPI - URI/Sore Throat General Chief Complaint: Upper Respiratory Infection Stated Complaint: i think i have covid pna Time Seen by Provider: 10/25/20 02:45 History of Present Illness HPI Narrative: Patient presents with cough and shortness of breath. Reports he was diagnosed with Covid approximately 2 weeks ago was initially doing well however his cough and shortness of breath. Progressively worse and today are times sleeping so he came to the ER for evaluation. Reports diffuse chest pain that is achy, constant, worse with deep inspiration, no radiation. Reports subjective fevers at home. Related Data Home Medications Medication Instructions Recorded Confirmed Invega Sustenna See Rx Instructions .ROUTE .COMPLEX 08/20/19 10/06/20 bupropion HCl 150 mg PO BID 08/20/19 10/06/20 insulin lispro See Rx Instructions .ROUTE .COMPLEX 08/20/19 10/06/20 buspirone See Rx Instructions .ROUTE .COMPLEX 11/09/19 10/06/20 buspirone See Rx Instructions .ROUTE .COMPLEX 11/09/19 10/06/20 famotidine 40 mg PO DAILY 11/09/19 10/06/20 [id number] [Creon] See Rx Instructions .ROUTE .COMPLEX 11/09/19 10/06/20 tramadol 50 mg PO BID PRN 11/09/19 10/06/20 dextroamphetamine-amphetamine PO 10/25/20 gabapentin 10/25/20 Allergies Allergy/AdvReac Type Severity Reaction Status Date / Time No Known Allergies Allergy Verified 10/25/20 02:33 Review of Systems Review of Systems: CONSTITUTIONAL: Subjective fevers EYES: Denies visual changes, redness, or discharge. ENT: Denies rhinorrhea, congestion, sore throat, or otalgia. CARDIOVASCULAR: Denies palpitations, or edema. RESPIRATORY: Reports cough and shortness of breath GASTROINTESTINAL: Denies abdominal pain, nausea, vomiting, or diarrhea. GENITOURINARY: Denies dysuria or hematuria. SKIN: Denies rash or itching. MUSCULOSKELETAL: Denies back pain, joint pain, or myalgia. NEUROLOGIC: Denies headache, numbness, dizziness, or weakness. PSYCHIATRIC: Denies anxiety or depression. All systems reviewed & are unremarkable except as noted in HPI and below PMFSH Past Medical History Medical History Alcoholic pancreatitis Bipolar disorder Depression with anxiety DM type 2 (diabetes mellitus, type 2) OCD (obsessive compulsive disorder) Tourettes disease Surgical History Surgical History Hx of appendectomy Social History Social History Smokeless tobacco user: chewing tobacco Alcohol intake: former Substance use: never Gender identity (if verbalized by the patient): Male Exam Narrative: GENERAL: Well-appearing, well-nourished, and in no acute distress. HEAD: Normocephalic, atraumatic. EYES: PERRLA and EOMI. ENT: Nares clear, no rhinorrhea or epistaxis. Mucous membranes moist. NECK: Supple. No masses. No JVD CHEST: Clear to auscultation. No respiratory distress. No wheezes rales or rhonchi HEART: Regular rate and rhythm. No murmur heard. Normal peripheral pulses. ABDOMEN: Soft, nontender, nondistended, normal active bowel sounds. EXTREMITIES: Normal range of motion. No edema. SKIN: Warm, dry, no rash. NEURO: No focal deficits. Alert and oriented x3. PSYCH: Normal mood and affect. Course Reevaluation(s) Reevaluation #1: Patient resting comfortably results and plan reviewed with patient. Patient comfortable with outpatient plan. Date: 10/25/20 Time: 04:49 Vital Signs Vital signs: Vital Signs Temperature 36.6 C 10/25/20 02:23 Pulse Rate 98 10/25/20 02:23 Respiratory Rate 19 10/25/20 02:23 Blood Pressure 141/95 H 10/25/20 02:23 Pulse Oximetry 100 10/25/20 02:23 Temperature 36.6 C 10/25/20 02:23 Pulse Rate 88 10/25/20 05:25 Respiratory Rate 20 10/25/20 05:25 Blood Pressure 124/91 H 10/25/20 05:25 Pulse Oximetry 97 10/25/20 05:25 MDM - URI/Sore Throat MDM Narrative Medical
--- NOTE | 2020-10-25 03:18 | PC.NURSE ---
Assumed care of pt at this time. Pt VSS. Pt is alert and upright on stretcher. Discussed POC.
[2020-10-25 03:19] VITALS: BP 130/90; PULSE 100; RESP 20; O2SAT 99
[2020-10-25] MEDS: SODIUM CHLORIDE 0.9% IV 1,000 ML 999 ML IV CONT (03:31)
[2020-10-25] MEDS: KETOROLAC 15 MG/ML VIAL (*BKC) IV PUSH (03:31)
[2020-10-25 03:42] LABS: Basophils Absolute Auto 0.1 K/mm3 (0.0-0.1); Basophils Percent Auto 0.7 % (0.2-1.2); Eosinophils Absolute Auto 0.4 K/mm3 (0-0.3); Eosinophils Percent Auto 5.7 % (0-4.4); Hematocrit 44.1 % (42.0-52.0); Hemoglobin 14.2 g/dL (14.0-18.0); Immature Granulocyte Absolute 0.03 K/mm3 (0.00-0.031); Immature Granulocyte Percent A 0.4 % (0-0.5); Lymphocytes Absolute Auto 2.08 K/mm3 (0.9-3.2); Lymphocytes Percent Auto 30.4 % (18.3-44.2); Mean Corpuscular HGB Conc 32.2 g/dl (32-36); Mean Platelet Volume 9.2 fl (7.4-10.4); Monocytes Absolute Auto 0.5 K/mm3 (0.1-0.6); Monocytes Percent Auto 6.9 % (2.6-8.5); Neutrophils Absolute Auto 3.8 K/mm3 (1.3-6.7); Neutrophils Percent Auto 55.9 % (45.5-73.1); Platelet Count Result 257 k/mm3 (150-375); Red Blood Count 5.07 M/mm3 (4.6-6.20); Red Cell Distribution Width 12.6 % (11.5-14.5); White Blood Count 6.8 K/mm3 (4.5-10.0)
[2020-10-25 03:55] LABS: Anion Gap 8 mmol/L (8-16); Blood Urea Nitrogen 19 mg/dL (9-20); Calcium 10.2 mg/dL (8.4-10.2); Carbon Dioxide 21 mmol/L (22-30); Chloride 106 mmol/L (98-107); Estimated CRCL calculation 115 ml/min; Estimated Glomerular Filt Rate > 60; Glucose 339 mg/dL (65-110); Potassium 4.8 mmol/L (3.4-5.0); Sodium 135 mmol/L (137-145)
[2020-10-25 04:36] VITALS: BP 135/93; PULSE 83; RESP 15; O2SAT 97
[2020-10-25 05:25] VITALS: BP 124/91; PULSE 88; RESP 20; O2SAT 97
== END 2020-10-25 05:28 | disposition home or self-care (01) ==
PROVIDERS: Emergency Provider Emergency Medicine
DX: U07.1 COVID-19 (principal); R05 Cough; R06.02 Shortness of breath; E11.9 Type 2 diabetes mellitus without complications; Z79.4 Long term (current) use of insulin; F31.9 Bipolar disorder, unspecified; F41.9 Anxiety disorder, unspecified; F42.9 Obsessive-compulsive disorder, unspecified; F95.2 Tourette's disorder; F17.220 Nicotine dependence, chewing tobacco, uncomplicated
CPT/HCPCS: 36415; 71045; 80048; 85025; 96361; 96374; 99284; J1885; J7030

== ENCOUNTER 2020-10-31 00:15 | Emergency (ER) | payer OTHER, SELFPAY ==
--- NOTE | ~2020-10-31 | CT_ITS ---
EXAMINATION: CTA chest PE protocol EXAM DATE: 10/31/2020 03:53 INDICATION: recent COVID +, right sided chest pain. TECHNIQUE: Spiral CTA of the chest (pulmonary arteries) was performed with 100 cc Omnipaque 350 intr avenous contrast injection. Images were acquired during the pulmonary arterial phase. Coronal maxi mum intensity projection 3D-reconstructions were created by the technologist on dedicated workstation . Axial, coronal and sagittal reformatted images were reviewed. The dose-length product (DLP) for t his examination was 703.01 mGy-cm. The exposure was tailored according to patient size (auto mA exp osure control), and iterative reconstruction (ASIR) was used as additional dose reduction technique. Comparison is made to prior examination from chest x-ray same date. FINDINGS: Pulmonary arteries are well opacified and without intraluminal filling defects. No thora cic aortic dissection. Several small regions of tree-in-bud right lower lobe opacities, nonspecific pneumonitis were post infectious residua. There are no pleural or pericardial effusions. Tracheobr onchial tree is patent. There is no mediastinal, hilar or axillary lymphadenopathy. There is no p neumothorax. Heart normal in size. No evidence of coronary arterial calcification. Upper abdomen is unremarkable. There is mild thoracic spondylosis without osteoblastic or osteolytic lesions ayush ntified. IMPRESSION: 1. Small amount of right lower lobe pneumonitis or post infectious residua. 2. No pulmonary emboli. Reviewed, dictated and finalized at [facility].
--- NOTE | ~2020-10-31 | XR_ITS ---
EXAMINATION: XR chest 2V EXAM DATE: 10/31/2020 03:08 INDICATION: Shortness of breath, right-sided chest pain. Cough. TECHNIQUE: Frontal and lateral projections of the chest obtained and reviewed. Comparison is made to prior examination from 10/25/2020. FINDINGS: The lungs are clear. There are no pleural effusions. The cardiomediastinal silhouette is within normal limits. There is no pneumothorax suspected. The bones and soft tissues are unremarkab le. IMPRESSION: Unremarkable chest x-ray exam. Reviewed, dictated and finalized at [facility].
[2020-10-31 02:49] VITALS: BP 146/86; PULSE 114; RESP 20; TEMP 36.3; O2SAT 99
--- NOTE | 2020-10-31 02:49 | ECG_ITS ---
Measurements Intervals Nixon Rate: 86 P: 43 MA: 145 QRS: 53 QRSD: 110 T: 67 QT: 390 QTc: 468 Interpretive Statements SINUS RHYTHM ST ELEVATION IN DIFFUSE LEADS- PROBABLY EARLY REPOLARIZATION ABNORMALITY BASELINE ARTIFACT- V3-V6 BORDERLINE ECG Electronically Signed On 10-31-2020 6:57:57 CDT by Gildardo Casey D.O.
--- NOTE | 2020-10-31 03:04 | ED.URI ---
HPI - URI/Sore Throat General Chief Complaint: Upper Respiratory Infection Stated Complaint: cough, fluid in my lung Time Seen by Provider: 10/31/20 03:02 Source: patient Mode of arrival: ambulatory Limitations: no limitations History of Present Illness HPI Narrative: Patient is a 30-year-old male with a history of previous alcoholism, necrotizing pancreatitis, type 2 diabetes, obsessive-compulsive disorder, anxiety, who presents to the emergency department for evaluation of right-sided chest pain, shortness of breath. Patient states that he has had worsening dyspnea, cough, right-sided chest pain since being diagnosed with Covid. Patient states he was diagnosed over 3 weeks ago. He has not required hospitalization at this point. Patient reports loss of sense of taste and smell, mild diarrhea. He reports onset of chest pain over the past week, with severe pain on the right side of his chest, described as sharp and shooting in nature this evening. Patient last seen in this emergency department on October 25, discharged home with negative chest x-ray imaging. Patient denies recurrent fever. He reports palpitations. Patient was vaccinated with [employer] vaccine. Related Data Home Medications Medication Instructions Recorded Confirmed Invega Ananda See Rx Instructions .ROUTE .COMPLEX 08/20/19 10/06/20 bupropion HCl 150 mg PO BID 08/20/19 10/06/20 insulin lispro See Rx Instructions .ROUTE .COMPLEX 08/20/19 10/06/20 buspirone See Rx Instructions .ROUTE .COMPLEX 11/09/19 10/06/20 buspirone See Rx Instructions .ROUTE .COMPLEX 11/09/19 10/06/20 famotidine 40 mg PO DAILY 11/09/19 10/06/20 [id number] [Creon] See Rx Instructions .ROUTE .COMPLEX 11/09/19 10/06/20 tramadol 50 mg PO BID PRN 11/09/19 10/06/20 dextroamphetamine-amphetamine PO 10/25/20 gabapentin 10/25/20 Allergies Allergy/AdvReac Type Severity Reaction Status Date / Time No Known Allergies Allergy Verified 10/31/20 03:37 Review of Systems Review of Systems: CONSTITUTIONAL: Denies fever, chills, or sweats. EYES: Denies visual changes, redness, or discharge. ENT: Reports rhinorrhea and congestion CARDIOVASCULAR: Reports right-sided chest pain and palpitations, denies lower extremity edema RESPIRATORY: Reports cough and shortness of breath GASTROINTESTINAL: Denies abdominal pain, nausea, vomiting, or diarrhea. GENITOURINARY: Denies dysuria or hematuria. SKIN: Denies rash or itching. MUSCULOSKELETAL: Denies back pain, joint pain, or myalgia. NEUROLOGIC: Denies headache, numbness, or weakness. PSYCHIATRIC: Reports history of anxiety PMFSH Past Medical History Medical History Alcoholic pancreatitis Bipolar disorder Depression with anxiety DM type 2 (diabetes mellitus, type 2) OCD (obsessive compulsive disorder) Tourettes disease Surgical History Surgical History Hx of appendectomy Social History Social History Smokeless tobacco user: chewing tobacco Alcohol intake: former Substance use: never Gender identity (if verbalized by the patient): Male Exam Narrative: GENERAL: Awake, alert, conversant HEAD: Normocephalic, atraumatic. EYES: PERRLA and EOMI. ENT: Nares clear, no rhinorrhea or epistaxis. Mucous membranes moist. NECK: Supple. CHEST: No respiratory distress, mild tachypnea, coarse breath sounds bilaterally, no audible wheezing, positive right-sided chest wall pain which reproduces pain, no habitus HEART: Tachycardic rate, sinus rhythm ABDOMEN:Non distended, non tender EXTREMITIES: Normal range of motion. No edema. SKIN: Warm, dry, no rash. NEURO:No focal deficits. Alert and oriented x3 Course Vital Signs Vital signs: Vital Signs Temperature 36.3 C L 10/31/20 02:49 Pulse Rate 114 H 10/31/20 02:49 Respiratory Rate 20 10/31/20 02:49 Blood Pressu
[2020-10-31 03:13] VITALS: O2SAT 100
[2020-10-31 03:18] LABS: Basophils Absolute Auto 0.1 K/mm3 (0.0-0.1); Basophils Percent Auto 0.6 % (0.2-1.2); Eosinophils Absolute Auto 0.3 K/mm3 (0-0.3); Hemoglobin 12.6 g/dL (14.0-18.0); Immature Granulocyte Absolute 0.03 K/mm3 (0.00-0.031); Immature Granulocyte Percent A 0.3 % (0-0.5); Lymphocytes Absolute Auto 2.14 K/mm3 (0.9-3.2); Lymphocytes Percent Auto 24.8 % (18.3-44.2); Mean Corpuscular HGB Conc 32.3 g/dl (32-36); Mean Corpuscular Hemoglobin 28.1 pg (26-34); Mean Corpuscular Volume 86.9 fl (80-100); Mean Platelet Volume 9.3 fl (7.4-10.4); Monocytes Absolute Auto 0.5 K/mm3 (0.1-0.6); Monocytes Percent Auto 5.3 % (2.6-8.5); Neutrophils Absolute Auto 5.7 K/mm3 (1.3-6.7); Platelet Count Result 195 k/mm3 (150-375); Red Blood Count 4.49 M/mm3 (4.6-6.20); Red Cell Distribution Width 12.5 % (11.5-14.5); White Blood Count 8.6 K/mm3 (4.5-10.0)
[2020-10-31 03:35] LABS: Alanine Aminotransferase 24 U/L (4-50); Albumin Level 4.1 g/dL (3.5-5.1); Alkaline Phosphatase 106 U/L (38-126); Anion Gap 10 mmol/L (8-16); Aspartate Amino Transferase 21 U/L (17-59); Bilirubin,Total 0.5 mg/dL (0.2-1.3); Blood Urea Nitrogen 22 mg/dL (9-20); Carbon Dioxide 24 mmol/L (22-30); Chloride 100 mmol/L (98-107); Estimated CRCL calculation 94 ml/min; Estimated Glomerular Filt Rate > 60; Glucose 374 mg/dL (65-110); Potassium 4.3 mmol/L (3.4-5.0); Sodium 134 mmol/L (137-145)
[2020-10-31] MEDS: ONDANSETRON INJ 4 MG/2 ML VIAL IV PUSH (03:38)
[2020-10-31] MEDS: MORPHINE SULFATE (*CRX) 4 MG/ML INJ IV PUSH (03:38)
[2020-10-31] MEDS: SODIUM CHLORIDE 0.9% IV 1,000 ML 999 ML IV CONT (03:39)
[2020-10-31 04:28] VITALS: BP 152/88; PULSE 106; RESP 17; O2SAT 96
[2020-10-31 04:42] LABS: Lactate Dehydrogenase 357 U/L (313-618)
[2020-10-31 04:44] LABS: Lactic Acid Reflex 0.9 mmol/L (0.7-2.1)
[2020-10-31 04:59] LABS: Troponin I < 0.012 ng/mL (0.000-0.034)
[2020-10-31 05:51] VITALS: BP 134/85; PULSE 86; RESP 16; O2SAT 100
== END 2020-10-31 05:53 | disposition home or self-care (01) ==
PROVIDERS: Emergency Provider Emergency Medicine
DX: U07.1 COVID-19 (principal); J40 Bronchitis, not specified as acute or chronic; R07.89 Other chest pain; E11.9 Type 2 diabetes mellitus without complications; F31.9 Bipolar disorder, unspecified; F41.8 Other specified anxiety disorders; F42.9 Obsessive-compulsive disorder, unspecified; F95.2 Tourette's disorder; K86.0 Alcohol-induced chronic pancreatitis; F10.20 Alcohol dependence, uncomplicated; F17.220 Nicotine dependence, chewing tobacco, uncomplicated; Z79.4 Long term (current) use of insulin; R94.31 Abnormal electrocardiogram [ECG] [EKG]
CPT/HCPCS: 36415; 71046; 71275; 80053; 82728; 83605; 83615; 84145; 84484; 85025; 87040; 93005; 96361; 96374; 96375; 99284; J2270; J2405; J7030; Q9967

== ENCOUNTER 2021-02-14 13:41 | Emergency (ER) | payer OTHER, SELFPAY ==
--- NOTE | ~2021-02-14 | CT_ITS ---
EXAMINATION: CT abdomen pelvis w con INDICATION: Abdominal pain, chronic pancreatitis TECHNIQUE: Computed tomographic images of the abdomen and pelvis were obtained after the administrati on of 100 cc of Omnipaque 350 intravenous contrast. The dose-length product (DLP) was 1428.06 mGy-cm. Automated exposure control and iterative reconstruction technique were employed. COMPARISON: 09/03/2020 FINDINGS: The lung bases are clear. The heart size is normal. The liver, spleen, pancreas, gallbladde r, and adrenal glands are normal. The kidneys are unremarkable. A previously described infiltrating s oft tissue mass of the small bowel mesentery is decreased in size since the comparison examinations, consistent with resolving sequela of prior necrotizing pancreatitis. The appendix is absent. No patho logically enlarged abdominal or pelvic lymph nodes are identified. There is no free intraperitoneal g as or evidence of bowel obstruction. IMPRESSION: 1. No CT correlate for the patient's symptoms. 2. Decrease in size of infiltrating soft tissue mass of the small bowel mesentery, likely resolving s equela of prior necrotizing pancreatitis. Reviewed, dictated and finalized at location F. ICATIONS ANALYST IMPRESSION: 1. No CT correlate for the patient's symptoms. 2. Decrease in size of infiltrating soft tissue mass of the small bowel mesente ry, likely resolving sequela of prior necrotizing pancreatitis.
[2021-02-14 13:41] VITALS: BP 123/81; PULSE 99; RESP 18; TEMP 36.7; O2SAT 97
--- NOTE | 2021-02-14 14:33 | PC.NURSE ---
Pt to intake desk stating that his blood sugar is dropping (pt wears insulin pump) pt given Supply juice at this time.
[2021-02-14 17:58] VITALS: PULSE 83; RESP 16; TEMP 37; O2SAT 98
[2021-02-14 18:01] VITALS: BP 106/76; PULSE 85; RESP 17; O2SAT 99
[2021-02-14 18:23] LABS: Basophils Percent Auto 0.5 % (0.2-1.2); Eosinophils Absolute Auto 0.1 K/mm3 (0-0.3); Eosinophils Percent Auto 2.1 % (0-4.4); Hematocrit 41.2 % (42.0-52.0); Hemoglobin 13.3 g/dL (14.0-18.0); Immature Granulocyte Absolute 0.02 K/mm3 (0.00-0.031); Immature Granulocyte Percent A 0.3 % (0-0.5); Lymphocytes Absolute Auto 1.72 K/mm3 (0.9-3.2); Lymphocytes Percent Auto 27.7 % (18.3-44.2); Mean Corpuscular HGB Conc 32.3 g/dl (32-36); Mean Corpuscular Hemoglobin 28.1 pg (26-34); Mean Corpuscular Volume 87.1 fl (80-100); Mean Platelet Volume 9.4 fl (7.4-10.4); Monocytes Absolute Auto 0.5 K/mm3 (0.1-0.6); Monocytes Percent Auto 7.3 % (2.6-8.5); Neutrophils Absolute Auto 3.9 K/mm3 (1.3-6.7); Neutrophils Percent Auto 62.1 % (45.5-73.1); Platelet Count Result 211 k/mm3 (150-375); Red Blood Count 4.73 M/mm3 (4.6-6.20); White Blood Count 6.2 K/mm3 (4.5-10.0)
[2021-02-14 18:33] LABS: Alanine Aminotransferase 20 U/L (4-50); Albumin Level 4.2 g/dL (3.5-5.1); Alkaline Phosphatase 85 U/L (38-126); Anion Gap 6 mmol/L (8-16); Aspartate Amino Transferase 24 U/L (17-59); Bilirubin,Total 0.4 mg/dL (0.2-1.3); Blood Urea Nitrogen 18 mg/dL (9-20); Calcium 9.1 mg/dL (8.4-10.2); Carbon Dioxide 24 mmol/L (22-30); Chloride 104 mmol/L (98-107); Estimated CRCL calculation 119 ml/min; Estimated Glomerular Filt Rate > 60; Glucose 189 mg/dL (65-110); Lipase 20 U/L (23-300); Potassium 4.4 mmol/L (3.4-5.0); Sodium 134 mmol/L (137-145)
[2021-02-14] MEDS: SODIUM CHLORIDE 0.9% IV 1,000 ML 150 ML IV CONT (18:54)
[2021-02-14] MEDS: HYDROmorphone HCL INJ (*CRX) 1 MG/ML SYR 0.5 MG IV PUSH (18:55)
[2021-02-14] MEDS: ONDANSETRON INJ 4 MG/2 ML VIAL IV PUSH (18:55)
--- NOTE | 2021-02-14 19:07 | ED.ABDPAIN ---
HPI - Abdominal Pain General Chief Complaint: Abdominal Pain <Hansel Schaefer MD - Last Filed: 02/14/21 19:12> Stated Complaint: abd pain / chronic pancreatitis <Hansel Schaefer MD - Last Filed: 02/14/21 19:12> Time Seen by Provider: 02/14/21 17:51 <Hansel Schaefer MD - Last Filed: 02/14/21 19:12> Source: patient <Hansel Schaefer MD - Last Filed: 02/14/21 19:12> Mode of arrival: EMS <Hansel Schaefer MD - Last Filed: 02/14/21 19:12> Limitations: no limitations <Hansel Schaefer MD - Last Filed: 02/14/21 19:12> History of Present Illness HPI narrative: 30-year-old with a history of necrotizing pancreatitis here with complaints of left upper abdominal pain for past few days. He is denies any fever or chills. No history of recent alcohol. He also states that his abdomen is distended <Hansel Schaefer MD - Last Filed: 02/14/21 19:12> MD elicited complaint: abdominal pain <Hansel Schaefer MD - Last Filed: 02/14/21 19:12> Pertinent past history: other (Pancreatitis) <Hansel Schaefer MD - Last Filed: 02/14/21 19:12> Onset (ago): day(s) (2) <Hansel Schaefer MD - Last Filed: 02/14/21 19:12> Location: epigastric and LUQ <Hansel Schaefer MD - Last Filed: 02/14/21 19:12> Severity: severe <Hansel Schaefer MD - Last Filed: 02/14/21 19:12> Quality: aching <Hansel Schaefer MD - Last Filed: 02/14/21 19:12> Migration to: no migration <Hansel Schaefer MD - Last Filed: 02/14/21 19:12> Exacerbating factors: nothing <MD David Javed Last Filed: 02/14/21 19:12> Relieving factors: nothing <Hansel Schaefer MD - Last Filed: 02/14/21 19:12> Associated symptoms: nausea <Hansel Schaefer MD - Last Filed: 02/14/21 19:12> Related Data Home Medications: Home Medications Medication Instructions Recorded Confirmed Ramon Malave See Rx Instructions .ROUTE .COMPLEX 08/20/19 10/06/20 bupropion HCl 150 mg PO BID 08/20/19 10/06/20 insulin lispro See Rx Instructions .ROUTE .COMPLEX 08/20/19 10/06/20 buspirone See Rx Instructions .ROUTE .COMPLEX 11/09/19 10/06/20 buspirone See Rx Instructions .ROUTE .COMPLEX 11/09/19 10/06/20 famotidine 40 mg PO DAILY 11/09/19 10/06/20 [id number] [Creon] See Rx Instructions .ROUTE .COMPLEX 11/09/19 10/06/20 tramadol 50 mg PO BID PRN 11/09/19 10/06/20 dextroamphetamine-amphetamine PO 10/25/20 gabapentin 10/25/20 <Hansel Schaefer MD - Last Filed: 02/14/21 19:12> Allergies/Adverse Reactions: Allergies Allergy/AdvReac Type Severity Reaction Status Date / Time No Known Allergies Allergy Verified 02/14/21 18:01 <Hansel Schaefer MD - Last Filed: 02/14/21 19:12> Review of Systems Review of Systems: All systems reviewed & are unremarkable except as noted in HPI and below <Hansel Schaefer MD - Last Filed: 02/14/21 19:12> Constitutional: Constitutional: Reports no additional constitutional complaints <Hansel Schaefer MD - Last Filed: 02/14/21 19:12> Eyes: Eyes: Reports no additional eye complaints <Hansel Schaefer MD - Last Filed: 02/14/21 19:12> ENT: Reports system reviewed and no additional complaints, except as documented <Hansel Schaefer MD - Last Filed: 02/14/21 19:12> Cardiovascular: Cardiovascular: Reports no additional cardiovascular complaints <Hansel Schaefer MD - Last Filed: 02/14/21 19:12> Respiratory: Respiratory: Reports no additional respiratory complaints <Hansel Schaefer MD - Last Filed: 02/14/21 19:12> Gastrointestinal: Gastrointestinal: Reports as per HPI <Hansel Schaefer MD - Last Filed: 02/14/21 19:12> Musculoskeletal: Musculoskeletal: Reports no additional musculoskeletal complaints <Hansel Schaefer MD - Last Filed: 02/14/21 19:12> Neurologic: Reports system reviewed and no additional complaints, except as documented <Hansel Schaefer MD - Last Filed: 02/14/21 19:12> Endocrine: Endocrine: Reports no additional endocrine complaints <Hansel Hahn
[2021-02-14 20:02] VITALS: BP 140/86; PULSE 79; RESP 15; O2SAT 97
[2021-02-14] MEDS: diphenhydrAMINE HCl INJ 50 MG/ML VIAL (20:02)
--- NOTE | 2021-02-14 20:02 | PC.NURSE ---
pt c/o itching after ct scan, received vorb from dr padgett for Benadryl 25 mg ivp x1
[2021-02-14 21:00] LABS: Add Urine Microscopic? NO; Appearance Urine Clear (Clear); Bilirubin Urine Negative (Negative); Blood Urine Negative (Negative); Color Urine Straw (Yellow); Glucose Urine UA Negative (Negative); Ketones Urine Negative (Negative); Leukocyte Esterase Ur Negative LEU/UL (Negative); Nitrate Urine Negative (Negative); Protein Urine Negative (Negative); Urobilinogen Urine Negative mg/dL (<2.0)
[2021-02-14 21:05] VITALS: BP 101/66; PULSE 80; RESP 14; O2SAT 98
--- NOTE | 2021-02-14 21:05 | PC.NURSE ---
pt has been asked multiple times for urine specimen, pt refused catheter offer.
[2021-02-14 21:21] LABS: Specific Grav Ur 1.049 (1.001-1.035)
[2021-02-14 22:38] VITALS: BP 139/86; PULSE 84; RESP 16; O2SAT 97
== END 2021-02-14 22:39 | disposition home or self-care (01) ==
PROVIDERS: Family Medicine; Emergency Provider Emergency Medicine
DX: R10.12 Left upper quadrant pain (principal); E11.9 Type 2 diabetes mellitus without complications; F31.9 Bipolar disorder, unspecified; F41.9 Anxiety disorder, unspecified; F42.9 Obsessive-compulsive disorder, unspecified; F95.2 Tourette's disorder; F17.220 Nicotine dependence, chewing tobacco, uncomplicated; Z79.4 Long term (current) use of insulin
CPT/HCPCS: 36415; 74177; 80053; 81003; 83690; 85025; 96374; 96375; 99284; J1170; J1200; J2405; J7030; Q9967

== ENCOUNTER 2021-04-15 09:14 | Emergency (ER) | payer OTHER, SELFPAY ==
--- NOTE | 2021-04-15 09:15 | ED.URI ---
HPI - URI/Sore Throat General Chief Complaint: Upper Respiratory Infection Stated Complaint: Chest Congestion Time Seen by Provider: 04/15/21 09:16 Source: patient and RN notes reviewed History of Present Illness HPI Narrative: Patient is a 31-year-old male who presents the urgent care with complaints of chest congestion, cough and postnasal drainage. Patient states that started approximately 2 to 3 weeks ago. States that he has had the cough since November off and on. Patient has tested himself for Covid which was negative. Patient has been taking DayQuil, NyQuil and Robitussin-DM. Patient is diabetic and states that his blood sugars have been running in the 200s. Denies of any fever, chills, nausea, vomiting. No other acute complaints. No acute distress noted. Patient read the plan of care. Some parts of this dictation were generated by voice recognition software and may contain typographical and/or grammatical inaccuracies. Related Data Home Medications Medication Instructions Recorded Confirmed Invega Ananda See Rx Instructions .ROUTE .COMPLEX 08/20/19 10/06/20 bupropion HCl 150 mg PO BID 08/20/19 10/06/20 insulin lispro See Rx Instructions .ROUTE .COMPLEX 08/20/19 10/06/20 buspirone See Rx Instructions .ROUTE .COMPLEX 11/09/19 10/06/20 buspirone See Rx Instructions .ROUTE .COMPLEX 11/09/19 10/06/20 famotidine 40 mg PO DAILY 11/09/19 10/06/20 [id number] [Creon] See Rx Instructions .ROUTE .COMPLEX 11/09/19 10/06/20 tramadol 50 mg PO BID PRN 11/09/19 04/15/21 dextroamphetamine-amphetamine PO 10/25/20 gabapentin 10/25/20 pregabalin 150 mg PO QPM 04/15/21 04/15/21 Allergies Allergy/AdvReac Type Severity Reaction Status Date / Time No Known Allergies Allergy Verified 04/15/21 09:27 Review of Systems Review of Systems: CONSTITUTIONAL: Denies fever, chills, or sweats. EYES: Denies visual changes, redness, or discharge. ENT: Reports of postnasal drainage, nasal congestion CARDIOVASCULAR: Denies chest pain, palpitations, or edema. RESPIRATORY: Reports a productive cough without dyspnea GASTROINTESTINAL: Denies abdominal pain, nausea, vomiting, or diarrhea. GENITOURINARY: Denies dysuria or hematuria. SKIN: Denies rash or itching. MUSCULOSKELETAL: Denies back pain, joint pain, or myalgia. NEUROLOGIC: Denies headache, numbness, or weakness. All other systems reviewed are negative, except as documented in HPI. [facility] Past Medical History Medical History Alcoholic pancreatitis Bipolar disorder Depression with anxiety DM type 2 (diabetes mellitus, type 2) OCD (obsessive compulsive disorder) Tourettes disease Surgical History Surgical History Hx of appendectomy Social History Social History Smokeless tobacco user: chewing tobacco Alcohol intake: former Substance use: never Gender identity (if verbalized by the patient): Male Comments At the time of my signature, I reviewed and agree with the nursing past medical, surgical, social, and family history. There is no relevant family history pertinent to the patient complaint. Exam Narrative: GENERAL: This is a well-nourished, well-developed patient, in no apparent distress. HEAD: normocephalic, atraumatic. EYES: PERRL. Sclera clear/white. Vision is grossly intact. EARS: External ears normal, auditory canals clear and without drainage, TMs normal without perforation. Hearing grossly intact. NOSE: External nose normal with no obvious nasal discharge, nares without redness, clear to yellow rhinorrhea. THROAT: Mucous membranes moist, posterior pharynx clear. Moderate postnasal drainage NECK: Neck supple CARDIOVASCULAR: Regular rate and rhythm RESPIRATORY: Cough noted on exam. Clear to auscultation. Breath sounds equal bilaterally. No wheezes, rales, or rhonchi. SKIN: warm, intact with no sanchez
[2021-04-15 09:20] VITALS: BP 124/65; PULSE 79; RESP 20; TEMP 36.2; O2SAT 96
== END 2021-04-15 09:40 | disposition home or self-care (01) ==
PROVIDERS: Emergency Provider Nurse Practitioner Family
DX: J40 Bronchitis, not specified as acute or chronic (principal); J06.9 Acute upper respiratory infection, unspecified; E11.9 Type 2 diabetes mellitus without complications; F95.2 Tourette's disorder; F41.8 Other specified anxiety disorders
CPT/HCPCS: 99213; G0463

== ENCOUNTER 2021-06-09 15:26 | Emergency (ER) | payer OTHER, SELFPAY ==
--- NOTE | ~2021-06-09 | XR_ITS ---
EXAMINATION:XR_[id number]_CR DATE: 06/09/2021 16:10 INDICATION: Neck pain TECHNIQUE: AP, lateral, and odontoid views of the cervical spine are provided. COMPARISON: None FINDINGS: Alignment is normal. The odontoid is intact. No fracture is identified. Vertebral body heig hts and disk spaces are normal. Prevertebral soft tissues are normal. IMPRESSION: 1. No acute osseous abnormality. Reviewed, dictated and finalized at location F.
[2021-06-09 15:30] VITALS: BP 109/58; PULSE 120; RESP 16; TEMP 36.9; O2SAT 99
--- NOTE | 2021-06-09 15:37 | ED.BACK ---
HPI - Back Pain/Injury General Chief Complaint: Back Pain/Injury Stated Complaint: Upper Back/Neck Pain Time Seen by Provider: 06/09/21 15:40 Source: patient and RN notes reviewed Mode of arrival: ambulatory Limitations: no limitations History of Present Illness HPI Narrative: 31-year-old male with history of Tourette's syndrome, type 2 diabetes presents with concern for acute upper back and neck pain. He denies any injury or trauma. Reports it started several days ago when he woke up feeling like he may have slept on his neck wrong. He reports the pain is progressed over the last several days. He reports midline pain at the base of his neck that radiates to his head and down his spine. He denies any weakness in any extremity, tingling in any extremity. Denies abdominal pain, fever, trouble breathing. He reports pain when he extends or flexes his neck, rotation of the left and right do not cause extra pain. Reports has been taking tramadol and Tylenol with slight ease of the pain. MD elicited complaint: back pain Related Data Home Medications Medication Instructions Recorded Confirmed bupropion HCl 150 mg PO BID 08/20/19 06/09/21 insulin lispro See Rx Instructions .ROUTE .COMPLEX 08/20/19 06/09/21 buspirone See Rx Instructions .ROUTE .COMPLEX 11/09/19 06/09/21 famotidine 40 mg PO DAILY 11/09/19 06/09/21 tramadol 50 mg PO BID PRN 11/09/19 06/09/21 dextroamphetamine-amphetamine 15 mg PO DAILY 10/25/20 06/09/21 pregabalin 150 mg PO QPM 04/15/21 06/09/21 paliperidone palmitate [Invega 234 mg IM Q30D 06/09/21 06/09/21 Sustenna] Allergies Allergy/AdvReac Type Severity Reaction Status Date / Time No Known Allergies Allergy Verified 06/09/21 15:48 Review of Systems Review of Systems: CONSTITUTIONAL: Denies malaise, chills, sweats, or fever. CARDIOVASCULAR: Denies chest pain, palpitations, or edema. RESPIRATORY: Denies cough or dyspnea. GASTROINTESTINAL: Denies abdominal pain, nausea, vomiting, diarrhea, loss of bowel function GENITOURINARY: Denies dysuria, hematuria, frequency, loss of bladder function. SKIN: Denies rash or itching. MUSCULOSKELETAL: Reports low neck pain and upper back pain NEUROLOGIC: Denies numbness, weakness, or headache. All systems reviewed & are unremarkable except as noted in HPI and below PMFSH Past Medical History Medical History Alcoholic pancreatitis Bipolar disorder Depression with anxiety DM type 2 (diabetes mellitus, type 2) OCD (obsessive compulsive disorder) Tourettes disease Surgical History Surgical History Hx of appendectomy Social History Social History Smokeless tobacco user: chewing tobacco Alcohol intake: former Substance use: never Gender identity (if verbalized by the patient): Male Comments At time of signature, agree with nursing past medical, surgical, social and family history. There is no relevant family history pertinent to the presenting complaint Exam Narrative: GENERAL: Well-appearing, well-nourished, and in no acute distress. HEAD: Normocephalic, atraumatic. EYES: PERRLA and EOMI. NECK: Supple. No lymphadenopathy. CHEST: Clear to auscultation. No respiratory distress. HEART: Regular rate and rhythm. Distal pulses palpable and equal, cap refill <3 seconds ABDOMEN: Soft, nontender, nondistended, normal active bowel sounds, no palpable or pulsatile masses. No CVA tenderness MUSCULOSKELETAL: Normal range of motion and strength in all extremities; 5/5 strength with hip flexion and extension, dorsiflexion and extension, knee flexion and extension, plantar flexion and extension. Normal sensation in dermatomal distributions with sensitivity to light touch and pain. Midline neck tenderness to palpation at approximately C7. No paraspinal tenderness. Transfers from sitting to standing. SKIN: Warm, dry, no ra
[2021-06-09] MEDS: KETOROLAC (*BKC) 60 MG/2 ML VIAL IM (15:44)
== END 2021-06-09 16:30 | disposition home or self-care (01) ==
PROVIDERS: Emergency Provider Nurse Practitioner
DX: M54.2 Cervicalgia (principal); E11.9 Type 2 diabetes mellitus without complications; F95.2 Tourette's disorder; F17.220 Nicotine dependence, chewing tobacco, uncomplicated; F41.8 Other specified anxiety disorders
CPT/HCPCS: 72040; 96372; 99213; G0463; J1885

== ENCOUNTER 2021-07-03 09:34 | Emergency (ER) | payer OTHER, SELFPAY ==
--- NOTE | ~2021-07-03 | XR_ITS ---
EXAMINATION: XR shoulder RT min 2V DATE: 07/03/2021 10:26 INDICATION: Right shoulder pain. TECHNIQUE: 4 views of right shoulder were obtained. COMPARISON: None. FINDINGS: Bone alignment is normal. No fracture. Glenohumeral joint is normal. There is mild acromioc lavicular joint osteoarthritis. IMPRESSION: 1. Mild acromioclavicular joint osteoarthritis. Reviewed, dictated and finalized at location B.
[2021-07-03 09:50] VITALS: BP 114/78; PULSE 101; RESP 20; TEMP 36.4; O2SAT 100
--- NOTE | 2021-07-03 09:54 | ED.EXTPRO ---
HPI - Extremity Problem General Chief complaint: Extremity Injury, Upper Stated complaint: Right Shoulder/Neck Pain Time Seen by Provider: 07/03/21 10:40 Source: patient and RN notes reviewed Mode of arrival: ambulatory Limitations: no limitations History of Present Illness HPI Narrative: 31-year-old male presents with concern for right shoulder pain for 1 week. Reports he has Tourette syndrome and has been having tics involving that arm and shoulder. He reports he had been having neck pain for which she was treated with muscle relaxers and steroids, reports his primary care doctor gave him more muscle relaxers and steroids for the symptoms. He reports the pain has moved from his neck to his shoulder. He denies any acute injury. He denies bruising, swelling. MD Complaint: extremity pain Related Data Home Medications Medication Instructions Recorded Confirmed bupropion HCl 150 mg PO BID 08/20/19 07/03/21 insulin lispro See Rx Instructions .ROUTE .COMPLEX 08/20/19 07/03/21 buspirone See Rx Instructions .ROUTE .COMPLEX 11/09/19 07/03/21 famotidine 40 mg PO DAILY 11/09/19 07/03/21 tramadol 50 mg PO BID PRN 11/09/19 07/03/21 dextroamphetamine-amphetamine 15 mg PO DAILY 10/25/20 07/03/21 pregabalin 150 mg PO QPM 04/15/21 07/03/21 paliperidone palmitate [Invega 234 mg IM Q30D 06/09/21 07/03/21 Sustenna] Allergies Allergy/AdvReac Type Severity Reaction Status Date / Time No Known Allergies Allergy Verified 07/03/21 10:45 Review of Systems Review of Systems: CONSTITUTIONAL: Denies malaise, chills, sweats, or fever. CARDIOVASCULAR: Denies chest pain, palpitations, or edema. RESPIRATORY: Denies cough or dyspnea. SKIN: Denies rash or itching, bruising, redness, swelling. MUSCULOSKELETAL: Reports right shoulder and neck pain NEUROLOGIC: Denies numbness, weakness All systems reviewed & are unremarkable except as noted in HPI and below PMFSH Past Medical History Medical History Alcoholic pancreatitis Bipolar disorder Depression with anxiety DM type 2 (diabetes mellitus, type 2) OCD (obsessive compulsive disorder) Tourettes disease Surgical History Surgical History Hx of appendectomy Social History Social History Smokeless tobacco user: chewing tobacco Alcohol intake: former Substance use: never Gender identity (if verbalized by the patient): Male Comments At time of signature, agree with nursing past medical, surgical, social and family history. There is no relevant family history pertinent to the presenting complaint Exam Narrative: GENERAL: Well-appearing, well-nourished, and in no acute distress. HEAD: Normocephalic, atraumatic. EYES: PERRLA, conjunctivae clear NECK: Supple. CHEST: Speaks in full sentences. No respiratory distress. HEART: Regular rate and rhythm. Normal and equal peripheral pulses. EXTREMITIES: Right shoulder and upper extremity have normal strength and sensation, normal range of motion. No edema or ecchymosis. Normal sensation with sensitivity to light touch and pain. Anterior shoulder tenderness. No open wounds, no skin tenting, no devitalized tissue or atrophy, no trophic changes, no obvious deformity, alignment normal, nearby joints and structures intact. Distal pulses palpable and equal bilaterally, skin warm, dry, pink. Capillary refill less than 3 seconds. SKIN: Warm, dry, no rash. NEURO: Alert and oriented x3. PSYCH: Normal mood and affect Course Course Emergency Course: Patient is aware of diagnosis, understands and agrees to treatment plan. Anticipatory guidance given. Patient agrees to follow-up as directed and is aware of reasons to seek care at the emergency department. Portions of this record may have been created with voice recognition software Level of Care: Express Care Visit Vital Signs Vital signs: Vital Sign
== END 2021-07-03 10:59 | disposition home or self-care (01) ==
PROVIDERS: Emergency Provider Nurse Practitioner
DX: M25.511 Pain in right shoulder (principal); E11.9 Type 2 diabetes mellitus without complications; F95.2 Tourette's disorder; F17.220 Nicotine dependence, chewing tobacco, uncomplicated; F41.8 Other specified anxiety disorders
CPT/HCPCS: 73030; 99213; G0463

== ENCOUNTER 2021-09-07 01:18 | Emergency (ER) | payer OTHER, SELFPAY ==
[2021-09-07] VITALS (30 sets, daily range): BP systolic 100–147; BP diastolic 66–87; PULSE 60–102; RESP 11–23; TEMP 36.7; O2SAT 93–98
--- NOTE | ~2021-09-07 | XR_ITS ---
XR chest 2V 09/07/2021 02:01 Indication: Chest pain Procedure: PA and lateral views of the chest Comparison: 10/31/2020 Findings: There are subtle right middle lobe infiltrates which may represent atelectasis or developin g pneumonia. Heart size normal. No pleural effusion or pneumothorax. No acute osseous abnormality. Impression: 1: Subtle right middle lobe infiltrates may represent atelectasis or developing pneumonia. Reviewed, dictated and finalized at location A. Impression: 1: Subtle right middle lobe infiltrates may represent atelectasis or developing pneumonia.
--- NOTE | 2021-09-07 01:20 | ECG_ITS ---
Measurements Intervals [place] Rate: 98 P: 31 LA: 142 QRS: 48 QRSD: 96 T: 38 QT: 361 QTc: 462 Interpretive Statements SINUS RHYTHM POSSIBLE LEFT ATRIAL ENLARGEMENT INCOMPLETE RIGHT BUNDLE BRANCH BLOCK LOW QRS VOLTAGE IN PRECORDIAL LEADS BASELINE ARTIFACT- I, II, AVR, AVL, AVF, V1-V2 BORDERLINE ECG Electronically Signed On 09-07-2021 7:13:01 CDT by Gildardo Casey D.O.
--- NOTE | 2021-09-07 01:28 | ED.CHESTPAIN ---
HPI - Chest Pain General Chief Complaint: Chest Pain Stated Complaint: chest pain Source: patient Mode of arrival: EMS Limitations: no limitations History of Present Illness HPI narrative: 31 year old male arrives to the Emergency Department via EMS. Patient states he was sitting in his recliner watching TV with onset of chest pain. Pain is sharp and mid to left chest. States has some pain to left arm. History of similar pain in past and has been worked up at several hospitals with negative findings. Non smoker. Denies drug use. 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 EMS gave patient aspirin en route. MD complaint: chest pain Onset (ago): minute(s) Timing of current episode: episodic (has had multiple times) and still present Prior episodes: Yes Onset: during rest (sitting in chair watching TV) Pain location: substernal and left chest Pain radiation: left arm Severity: moderate Quality: sharp Relieving factors: nothing Exacerbating factors: nothing Treatment prior to arrival: aspirin Risk Factors Coronary artery disease risk factors: diabetes Thoracic aortic dissection risk factors: none Related Data Home Medications Medication Instructions Recorded Confirmed bupropion HCl 150 mg 24 hr tablet, 150 mg PO BID 08/20/19 09/07/21 extended release insulin lispro See Rx Instructions .Route .COMPLEX 08/20/19 09/07/21 buspirone 10 mg tablet See Rx Instructions .Route .COMPLEX 11/09/19 09/07/21 famotidine 40 mg tablet 40 mg PO DAILY 11/09/19 09/07/21 tramadol 50 mg tablet 50 mg PO BID PRN Pain 11/09/19 09/07/21 dextroamphetamine-amphetamine ER 15 mg PO DAILY 10/25/20 09/07/21 15 mg 24hr capsule,extend release pregabalin 150 mg capsule 150 mg PO QPM 04/15/21 09/07/21 paliperidone palmitate 234 mg/1.5 234 mg IM Q30D 06/09/21 09/07/21 mL intramuscular syringe (Invega Sustenna) Allergies Allergy/AdvReac Type Severity Reaction Status Date / Time No Known Allergies Allergy Verified 09/07/21 01:25 Review of Systems Review of Systems: All systems reviewed & are unremarkable except as noted in HPI and below Constitutional: Constitutional: Reports as per HPI and Reports no additional constitutional complaints Eyes: Eyes: Reports as per HPI and Reports no additional eye complaints ENT: Reports system reviewed and no additional complaints, except as documented and Reports as per HPI Cardiovascular: Cardiovascular: Reports as per HPI, Reports no additional cardiovascular complaints and Reports chest pain Respiratory: Respiratory: Reports as per HPI, Reports no additional respiratory complaints and Denies dyspnea Gastrointestinal: Gastrointestinal: Reports as per HPI, Reports no additional gastrointestinal complaints, Denies nausea and Denies vomiting Genitourinary: Genitourinary: Reports no additional male genitourinary complaints and Reports as per HPI Musculoskeletal: Musculoskeletal: Reports no additional musculoskeletal complaints and Reports as per HPI Integumentary/Breasts: Skin/Breast: Reports system reviewed and no additional complaints, except as docu and Reports as per HPI Neurologic: Reports system reviewed and no additional complaints, except as documented and Reports as per HPI Psychiatric: Psychiatric: Reports no additional psychiatric complaints and Reports as per HPI Endocrine: Endocrine: Reports no additional endocrine complaints and Reports as per HPI Hematologic/Lymphatic: Hematologic/Lymphatic: Reports no additional hematologic/lymphatic complaints and Reports as per HPI Allergic/Immunologic: Allergic/Immunologic: Reports no additional allergic/immunologic complaints and Reports as per HPI [facility] Past Medical History Medical History Alcoholic pancreatitis Bipolar disorder Depression with anxiety DM type 2 (diabetes mellitus, type 2) OCD (obsessive compulsive disorder) Tourettes disease Surgical History Surgical H
[2021-09-07 01:59] LABS: Basophils Absolute Auto 0.04 K/mm3 (0.00-0.10); Basophils Percent Auto 0.6 % (0.0-1.0); Eosinophils Absolute Auto 0.15 K/mm3 (0.02-0.50); Eosinophils Percent Auto 2.4 % (1.0-6.0); Hematocrit 38.5 % (40.0-54.0); Hemoglobin 12.5 g/dL (14.0-18.0); Immature Granulocyte Absolute 0.05 K/mm3 (0.00-0.00); Immature Granulocyte Percent A 0.8 % (0.0-0.0); Lymphocytes Absolute Auto 1.81 K/mm3 (1.10-4.50); Lymphocytes Percent Auto 28.8 % (18.0-42.0); Mean Corpuscular HGB Conc 32.5 g/dL (32.0-36.0); Mean Corpuscular Hemoglobin 28.6 pg (27.0-31.0); Mean Corpuscular Volume 88.1 fL (78.0-102.0); Mean Platelet Volume 10.4 fl (8.7-11.0); Monocytes Absolute Auto 0.47 K/mm3 (0.10-0.90); Monocytes Percent Auto 7.5 % (2.0-11.0); Neutrophils Absolute Auto 3.8 K/mm3 (1.7-7.2); Neutrophils Percent Auto 59.9 % (50.0-70.0); Platelet Count Result 208 K/mm3 (150-420); Red Blood Count 4.37 M/mm3 (4.70-6.10); Red Cell Distribution Width 12.5 % (11.6-14.4); White Blood Count 6.3 K/mm3 (4.8-10.8)
[2021-09-07 02:07] LABS: Add Urine Microscopic? YES; Appearance Urine Clear (Clear); Bilirubin Urine Negative (Negative); Blood Urine Negative (Negative); Color Urine Light Yellow (Yellow); Glucose Urine UA 3+ (Negative); Ketones Urine Trace (Negative); Leukocyte Esterase Ur Negative LEU/UL (Negative); Nitrate Urine Negative (Negative); Protein Urine Negative (Negative); Specific Grav Ur 1.015 (1.010-1.020); Urobilinogen Urine 0.2 mg/dL (0.2-1.0)
[2021-09-07 02:11] LABS: D Dimer 0.19 mg/L (0.19-0.50)
[2021-09-07 02:12] LABS: Bacteria Urine None seen /hpf; RBC Urine 0-2 /hpf (0-2); Squamous Epithelial Cell Urine None seen /hpf (Few); WBC Urine 0-3 /hpf (0-3)
[2021-09-07] MEDS: KETOROLAC (*BKC) 60 MG/2 ML VIAL IM (02:13)
[2021-09-07 02:14] LABS: Amphetamine Screen Urine Positive (Negative); Barbiturate Screen Urine Negative (Negative); Benzodiazepines Screen Urine Negative (Negative); Cannabinoid Screen Urine Positive (Negative); Cocaine Screen Urine Negative (Negative); Methadone Screen Urine Negative (Negative); Opiate Screen Urine Negative (Negative); Phencyclidine Screen Urine Positive (Negative)
[2021-09-07 02:19] LABS: Alanine Aminotransferase 23 U/L (16-63); Albumin Level 3.8 g/dL (3.4-5.0); Alkaline Phosphatase 100 U/L (46-116); Anion Gap 7 mmol/L (8-16); Aspartate Amino Transferase 11 U/L (15-37); Bilirubin,Total 0.3 mg/dL (0.00-1.00); Blood Urea Nitrogen 22 mg/dL (7-18); Calcium 8.8 mg/dL (8.5-10.1); Carbon Dioxide 26 mmol/L (21-32); Chloride 100 mmol/L (98-108); Creatine Kinase 123 U/L (39-308); Estimated Glomerular Filt Rate 57; Glucose 381 mg/dL (70-99); Osmolality Calculated 295 mOsm/kg (285-295); Potassium 4.2 mmol/L (3.5-5.1); Sodium 133 mmol/L (136-145); Troponin I 4.6 ng/L (0.00-60.4)
[2021-09-07] MEDS: INSULIN HUMAN REGULAR (*BKC) 100 UNITS/ML 15 UNITS IV PUSH (02:52)
[2021-09-07] MEDS: SODIUM CHLORIDE 0.9% IV 1,000 ML 999 ML IV CONT (02:52)
[2021-09-07 05:06] LABS: Glucose Point of Care 207 mg/dl (65-105)
== END 2021-09-07 05:19 | disposition home or self-care (01) ==
PROVIDERS: Emergency Provider Emergency Medicine
DX: R07.9 Chest pain, unspecified (principal); R07.89 Other chest pain; E11.65 Type 2 diabetes mellitus with hyperglycemia
CPT/HCPCS: 36415; 71046; 80053; 80307; 81001; 82550; 82553; 82948; 84484; 85025; 85380; 93005; 96361; 96372; 96374; 99284; J1815; J1885; J7030

== ENCOUNTER 2021-12-26 12:32 | Emergency (ER) | payer OTHER, SELFPAY ==
--- NOTE | ~2021-12-26 | CT_ITS ---
EXAMINATION: CT abdomen pelvis w con DATE: 12/26/2021 14:16 INDICATION: Left lower quadrant abdominal pain. TECHNIQUE: Computed tomography (CT) of the abdomen and pelvis was performed with 100 mL Omnipaque 350 intravenous contrast. Automated exposure control and iterative reconstruction technique were employe d. The dose-length product was 1436.27 mGy-cm. COMPARISON: CT abdomen and pelvis 02/14/2021 FINDINGS: The visualized portions of the lung bases demonstrate mild atelectasis. No pleural effusion . The heart size is normal. No pericardial effusion. The liver demonstrates focal steatosis at the hi lum. The gallbladder and spleen are normal. The pancreas, adrenal glands, and kidneys are normal. The re is diverticulosis of the colon without evidence of diverticulitis. There are changes of appendecto my. Splenic vein is small. Gastric varices are noted. There is chronic fat stranding at the root of t he small bowel mesentery, likely scarring. There are no pathologically enlarged lymph nodes. There is no free intraperitoneal fluid. There is mild thoracolumbar spondylosis. IMPRESSION: 1. No etiology for the patient's symptoms. Reviewed, dictated and finalized at location A. [employer]
[2021-12-26 12:34] VITALS: BP 119/73; PULSE 122; RESP 20; TEMP 36.4; O2SAT 98
[2021-12-26 12:45] LABS: Glucose Point of Care 139 mg/dl (65-105)
--- NOTE | 2021-12-26 13:02 | ECG_ITS ---
Measurements Intervals [place] Rate: 111 P: 31 RI: 140 QRS: 55 QRSD: 110 T: 33 QT: 375 QTc: 511 Interpretive Statements SINUS TACHYCARDIA BASELINE ARTIFACT- V1 ABNORMAL ECG COMPARED TO ECG 09/07/2021 01:23:55 SINUS TACHYCARDIA NOW PRESENT Electronically Signed On 12-26-2021 14:15:[address] ENGINEER by Gildardo Casey D.O.
[2021-12-26 13:16] LABS: Occult Blood Negative (Negative)
[2021-12-26] MEDS: HYDROmorphone HCL INJ (*CRX) 2 MG/ML VIAL 0.5 MG IV PUSH (13:23)
[2021-12-26] MEDS: SODIUM CHLORIDE 0.9% IV 1,000 ML 999 ML IV CONT (13:24)
[2021-12-26 13:31] LABS: Appearance Urine Clear (Clear); Basophils Absolute Auto 0.05 K/mm3 (0.00-0.10); Basophils Percent Auto 0.7 % (0.0-1.0); Bilirubin Urine Negative (Negative); Blood Urine Negative (Negative); Color Urine Yellow (Yellow); Eosinophils Absolute Auto 0.24 K/mm3 (0.02-0.50); Eosinophils Percent Auto 3.6 % (1.0-6.0); Glucose Urine UA Negative (Negative); Hematocrit 39.9 % (40.0-54.0); Hemoglobin 13.1 g/dL (14.0-18.0); Immature Granulocyte Absolute 0.02 K/mm3 (0.00-0.00); Immature Granulocyte Percent A 0.3 % (0.0-0.0); Leukocyte Esterase Ur Negative LEU/UL (Negative); Lymphocytes Absolute Auto 1.74 K/mm3 (1.10-4.50); Lymphocytes Percent Auto 25.9 % (18.0-42.0); Mean Corpuscular HGB Conc 32.8 g/dL (32.0-36.0); Mean Corpuscular Volume 91.3 fL (78.0-102.0); Mean Platelet Volume 9.2 fl (8.7-11.0); Neutrophils Absolute Auto 4.3 K/mm3 (1.7-7.2); Neutrophils Percent Auto 63.5 % (50.0-70.0); Nitrate Urine Negative (Negative); Platelet Count Result 201 K/mm3 (150-420); Protein Urine Negative (Negative); Red Blood Count 4.37 M/mm3 (4.70-6.10); Red Cell Distribution Width 14.2 % (11.6-14.4); Specific Grav Ur >= 1.030 (1.010-1.020); Urobilinogen Urine 0.2 mg/dL (0.2-1.0); White Blood Count 6.7 K/mm3 (4.8-10.8)
[2021-12-26 13:40] LABS: Add Urine Microscopic? NO; Ketones Urine Negative (Negative)
[2021-12-26 13:48] LABS: Alanine Aminotransferase 23 U/L (16-63); Albumin Level 3.6 g/dL (3.4-5.0); Alkaline Phosphatase 82 U/L (46-116); Anion Gap 13 mmol/L (8-16); Aspartate Amino Transferase 13 U/L (15-37); Bilirubin,Total 0.4 mg/dL (0.00-1.00); Blood Urea Nitrogen 17 mg/dL (7-18); Calcium 8.6 mg/dL (8.5-10.1); Carbon Dioxide 24 mmol/L (21-32); Chloride 102 mmol/L (98-108); Estimated CRCL calculation 95 ml/min; Estimated Glomerular Filt Rate > 60; Glucose 161 mg/dL (70-99); Lipase 34 U/L (73-393); Osmolality Calculated 292 mOsm/kg (285-295); Partial Thromboplastin Time 24.8 SEC (23.90-30.70); Potassium 3.8 mmol/L (3.5-5.1); Prothrombin Time 10.5 Seconds (9.50-12.10); Sodium 139 mmol/L (136-145)
[2021-12-26 13:49] LABS: Troponin I < 4.0 ng/L (0.00-60.4)
[2021-12-26 13:50] LABS: CRP < 0.5 mg/dL (0.0-0.9)
[2021-12-26 13:52] LABS: Lactic Acid Reflex 2.8 mmol/L (0.4-2.0)
--- NOTE | 2021-12-26 14:18 | PC.NURSE ---
pt returns from ct with itching after contrast. states has happened also in the past
[2021-12-26] MEDS: diphenhydrAMINE HCl INJ 50 MG/ML VIAL 25 MG IV PUSH (14:23)
--- NOTE | 2021-12-26 14:31 | ED.ABDPAIN ---
HPI - Abdominal Pain General Chief Complaint: Abdominal Pain Stated Complaint: left side abdominal pain Time Seen by Provider: 12/26/21 13:01 Source: patient Mode of arrival: ambulatory Limitations: no limitations History of Present Illness HPI narrative: this is a 31-year-old male that presents with some wood he states his blood in his stool with diarrhea, has some nausea and vomiting has left upper quadrant pain about a 9/10, with no fever chills states that he quit alcohol use about 4 years ago, there was no chest pain or shortness of breath patient has a history of bipolar disorder and Tourette syndrome and chronic alcoholic pancreatitis. Patient states that he has a primary care physician, has been seeing a grinding machine operator automatic as well. Currently there is no flank pain no hematuria no jarvis blood in his stools. MD elicited complaint: abdominal pain Pertinent past history: other ( pancreatitis) Onset (ago): year(s) Pain Consistency: intermittent Location: other ( left upper abdominal discomfort) Related Data Home Medications Medication Instructions Recorded Confirmed bupropion HCl 150 mg 24 hr tablet, 150 mg PO BID 08/20/19 12/26/21 extended release insulin lispro See Rx Instructions .Route .COMPLEX 08/20/19 12/26/21 buspirone 10 mg tablet See Rx Instructions .Route .COMPLEX 11/09/19 12/26/21 famotidine 40 mg tablet 40 mg PO DAILY 11/09/19 12/26/21 tramadol 50 mg tablet 50 mg PO BID PRN Pain 11/09/19 12/26/21 dextroamphetamine-amphetamine ER 15 mg PO DAILY 10/25/20 12/26/21 15 mg 24hr capsule,extend release pregabalin 150 mg capsule 150 mg PO QPM 04/15/21 12/26/21 paliperidone palmitate 234 mg/1.5 234 mg IM Q30D 06/09/21 12/26/21 mL intramuscular syringe (Invega Sustenna) Allergies Allergy/AdvReac Type Severity Reaction Status Date / Time No Known Allergies Allergy Verified 09/07/21 01:25 Review of Systems Review of Systems: All systems reviewed & are unremarkable except as noted in HPI and below PMFSH Past Medical History Medical History Alcoholic pancreatitis Bipolar disorder Depression with anxiety DM type 2 (diabetes mellitus, type 2) OCD (obsessive compulsive disorder) Tourettes disease Surgical History Surgical History Hx of appendectomy Social History Social History Smokeless tobacco user: chewing tobacco Alcohol intake: former Substance use: never Gender identity (if verbalized by the patient): Male Exam Const: General: healthy appearing and no acute distress Nutritional Appearance: well nourished Limitations: no limitations HENMT: Head: normal to inspection Face and sinus: normal facial exam Eyes: Conjunctivae: conjunctivae normal Pupils: Equal, round and reactive pupils present EOM: EOMs intact bilaterally Neck: Neck: normal visual inspection, no lymphadenopathy and no meningeal signs Chest: Chest palpation & inspection: normal inspection of the chest Resp: Effort & Inspection: normal respiratory effort Cardio: Rate: regular rate Rhythm: regular rhythm GI: GI Palp: Yes Soft to palpation and Yes Tenderness to palpation present (GI) Auscultation: normal bowel sounds : General: Yes bladder normal to palpation Urinary Catheter: Urinary Catheter: patent and draining Back/Spine/Pelvis: Back: no CVA tenderness Skin: General skin exam: normal color Neuro: General: patient oriented x3 Extrem: General: normal to inspection and no clubbing, cyanosis or edema Psych: Mental Status: mental status grossly normal Affect: Anxious affect present Course Course Emergency Course: Patient had IV fluids IV Zofran and IV Dilaudid, had a guaiac stool and rectal exam which showed no occult blood and no jarvis blood. The patient states that his pain level has improved down to a 2/10 currently no floresita
[2021-12-26 14:56] VITALS: BP 133/90; PULSE 114; RESP 18; O2SAT 95
[2021-12-26 16:27] LABS: Reflex Lactic Acid Yes or No Add Lactic
== END 2021-12-26 15:51 | disposition home or self-care (01) ==
PROVIDERS: Emergency Provider Emergency Medicine
DX: K52.9 Noninfective gastroenteritis and colitis, unspecified (principal); R10.84 Generalized abdominal pain
CPT/HCPCS: 36415; 74177; 80053; 81003; 82272; 82948; 83605; 83690; 84484; 85025; 85610; 85730; 86140; 93005; 96361; 96374; 96375; 99284; J1170; J1200; J7030; Q9967

== ENCOUNTER 2022-01-24 08:54 | Emergency (ER) | payer OTHER, SELFPAY ==
[2022-01-24 08:58] VITALS: BP 138/87; PULSE 100; RESP 14; TEMP 36.4; O2SAT 98
--- NOTE | 2022-01-24 09:31 | ED.SKABFB ---
HPI - Skin/Abscess/Foreign Bdy General Chief complaint: Skin/Abscess/Foreign Body Stated complaint: ingrown hair above lip/flu symptoms Time Seen by Provider: 01/24/22 09:45 Source: patient and RN notes reviewed Mode of arrival: ambulatory Limitations: no limitations History of Present Illness HPI narrative: 31-year-old male presents concern for ingrown hair on his lip and flu-like symptoms. Reports 1 week history of feeling of an ingrown hair above his right upper lip. Reports over the last several days it has become swollen, tender, red. He denies drainage. He reports he has a referral to Dermatology because he has several lesions in his cruz area, none are swollen and red like this 1 is. He reports he has had body aches, chills, sweats, general malaise, diarrhea and nausea for several days. MD complaint: rash Related Data Home Medications Medication Instructions Recorded Confirmed bupropion HCl 150 mg 24 hr tablet, 150 mg PO BID 08/20/19 01/24/22 extended release insulin lispro See Rx Instructions .Route .COMPLEX 08/20/19 01/24/22 buspirone 10 mg tablet See Rx Instructions .Route .COMPLEX 11/09/19 01/24/22 famotidine 40 mg tablet 40 mg PO DAILY 11/09/19 01/24/22 dextroamphetamine-amphetamine ER 15 mg PO DAILY 10/25/20 01/24/22 15 mg 24hr capsule,extend release pregabalin 150 mg capsule 150 mg PO QPM 04/15/21 01/24/22 paliperidone palmitate 234 mg/1.5 234 mg IM Q30D 06/09/21 01/24/22 mL intramuscular syringe (Invega Sustenna) Allergies Allergy/AdvReac Type Severity Reaction Status Date / Time No Known Allergies Allergy Verified 01/24/22 10:02 Review of Systems Review of Systems: CONSTITUTIONAL: Reports malaise, chills, sweats EYES: Denies redness, or discharge. ENT: Denies rhinorrhea, congestion, swollen lips, swollen tongue CARDIOVASCULAR: Denies chest pain, palpitations, or edema. RESPIRATORY: Denies cough or dyspnea. GASTROINTESTINAL: Denies abdominal pain, nausea, vomiting SKIN: Reports swelling, redness, tenderness with a scabbed lesion to his upper lip. Denies any redness, swelling, tenderness to the nose MUSCULOSKELETAL: Denies joint pain or myalgia. NEUROLOGIC: Denies headache. All systems reviewed & are unremarkable except as noted in HPI and below PMFSH Past Medical History Medical History Alcoholic pancreatitis Bipolar disorder Depression with anxiety DM type 2 (diabetes mellitus, type 2) OCD (obsessive compulsive disorder) Tourettes disease Surgical History Surgical History Hx of appendectomy Social History Social History Smokeless tobacco user: chewing tobacco Alcohol intake: former Substance use: never Gender identity (if verbalized by the patient): Male Comments At time of signature, agree with nursing past medical, surgical, social and family history. There is no relevant family history pertinent to the presenting complaint Exam Narrative: GENERAL: Well-appearing, well-nourished, and in no acute distress. HEAD: Normocephalic, atraumatic. EYES: PERRLA, conjunctivae clear ENT: Mucous membranes moist. NECK: Supple. No lymphadenopathy CHEST: Clear to auscultation. No respiratory distress. HEART: Regular rate and rhythm. SKIN: Warm, dry. 1.5 cm Erythema, induration, tenderness, warmth with sharp margins noted above the right lip with a scabbed central lesion, no fluctuation noted. Concurrently not involving the nasal area or cheek. No vesicles, bullae, necrosis, ecchymosis, crepitus noted. NEURO: Alert and oriented x3. PSYCH: Normal mood and affect HENMT: Head images: 1. Central scabbed lesion with surrounding Erythema, tenderness, edema without fluctuation Course Course Emergency Course: Advised patient to monitor his symptoms carefully symptoms worsen he should go to the emergency r
== END 2022-01-24 09:55 | disposition home or self-care (01) ==
PROVIDERS: Emergency Provider Nurse Practitioner
DX: L08.9 Local infection of the skin and subcutaneous tissue, unspecified (principal); E11.9 Type 2 diabetes mellitus without complications; Z79.4 Long term (current) use of insulin
CPT/HCPCS: 99213; G0463

== ENCOUNTER 2022-02-05 18:36 | Emergency (ER) | payer OTHER, SELFPAY ==
[2022-02-05 18:40] VITALS: BP 144/85; PULSE 91; RESP 20; TEMP 36.6; O2SAT 99
--- NOTE | 2022-02-05 19:33 | ED.GENADULT ---
HPI - General Adult General Chief complaint: Abdominal Pain Stated complaint: abdominal pain, dehydration Time Seen by Provider: 02/05/22 18:58 History of Present Illness HPI narrative: The patient is a 31-year-old male with history of chronic alcohol induced pancreatitis, as well as a history of necrotizing pancreatitis, who is on pancreatic replacement therapy. Also has insulin-dependent diabetes, has an indwelling cutaneous diabetic pump. Other comorbidities include bipolar affective disorder, depression, and OCD. He has had an appendectomy. The patient presents with chronic abdominal pain. He has pain in his abdomen every day. This is managed by taking pregabalin and tramadol once in the morning and once in the evening. His pain increased this afternoon and he comes here for evaluation. His pain has been ongoing since noon today. Also with some dizziness and nausea but no vomiting. No change in his bowel movements. No fevers or chills or URI or UTI symptoms. Related Data Home Medications Medication Instructions Recorded Confirmed bupropion HCl 150 mg 24 hr tablet, 150 mg PO BID 08/20/19 02/05/22 extended release insulin lispro See Rx Instructions .Route .COMPLEX 08/20/19 02/05/22 buspirone 10 mg tablet See Rx Instructions .Route .COMPLEX 11/09/19 02/05/22 famotidine 40 mg tablet 40 mg PO DAILY 11/09/19 02/05/22 dextroamphetamine-amphetamine ER 15 mg PO DAILY 10/25/20 02/05/22 15 mg 24hr capsule,extend release pregabalin 150 mg capsule 150 mg PO QPM 04/15/21 02/05/22 paliperidone palmitate 234 mg/1.5 234 mg IM Q30D 06/09/21 02/05/22 mL intramuscular syringe (Invega Sustenna) Allergies Allergy/AdvReac Type Severity Reaction Status Date / Time No Known Allergies Allergy Verified 02/05/22 18:52 Review of Systems Review of Systems: All systems reviewed & are unremarkable except as noted in HPI and below Constitutional: Constitutional: Reports no additional constitutional complaints, Reports anorexia, Denies body ache(s), Denies chills, Denies excessive sweating, Reports fatigue, Denies fever(s), Denies frequent falls, Denies headache(s), Reports malaise and Denies poor appetite Eyes: Eyes: Reports no additional eye complaints, Denies blurry vision, Denies change in vision, Denies irritation, Denies itchy eyes and Denies photophobia ENT: Reports system reviewed and no additional complaints, except as documented, Reports Normal hearing present, Denies change in voice, Denies dysphagia, Denies vertigo, Reports dizziness, Denies ear discharge, Denies headache(s), Denies hearing loss, Denies hoarseness, Denies nasal congestion, Denies neck pain, Denies sinus pressure, Denies sore throat and Denies throat swelling Cardiovascular: Cardiovascular: Reports no additional cardiovascular complaints, Denies chest pain, Denies syncope, Denies rapid heart rate, Denies irregular heart rhythm, Denies leg edema, Denies dyspnea and Denies slow heart rate Respiratory: Respiratory: Reports no additional respiratory complaints, Denies cough, Denies dyspnea, Denies stridor and Denies wheezing Gastrointestinal: Gastrointestinal: Reports no additional gastrointestinal complaints, Reports abdominal pain ( Chronic), Denies melena, Denies hematochezia, Denies dysphagia, Denies diarrhea, Reports nausea and Denies vomiting Genitourinary: Genitourinary: Denies hematuria, Denies oliguria, Denies dysuria, Denies flank pain, Denies urinary frequency and Denies urinary urgency Musculoskeletal: Musculoskeletal: Reports no additional musculoskeletal complaints, Denies abnormal gait, Denies back pain, Denies myalgias, Denies arthralgias, Denies joint swelling, Denies limited range of motion, Denies muscle cramps, Denies muscle weakness, Denies neck pain and Denies numbness Integumentary/Breasts: Skin/Breast: Reports system reviewed and no additional complaints, except as docu, Denies breast pain, Denies change in pigmentation, Denies pruritus, Denies
[2022-02-05 19:48] LABS: Basophils Absolute Auto 0.04 K/mm3 (0.00-0.10); Basophils Percent Auto 0.9 % (0.0-1.0); Eosinophils Percent Auto 2.1 % (1.0-6.0); Hemoglobin 13.4 g/dL (14.0-18.0); Immature Granulocyte Absolute 0.01 K/mm3 (0.00-0.00); Immature Granulocyte Percent A 0.2 % (0.0-0.0); Lymphocytes Absolute Auto 1.74 K/mm3 (1.10-4.50); Lymphocytes Percent Auto 37.1 % (18.0-42.0); Mean Corpuscular HGB Conc 32.7 g/dL (32.0-36.0); Mean Corpuscular Hemoglobin 30.7 pg (27.0-31.0); Mean Platelet Volume 9.2 fl (8.7-11.0); Monocytes Absolute Auto 0.27 K/mm3 (0.10-0.90); Monocytes Percent Auto 5.8 % (2.0-11.0); Neutrophils Absolute Auto 2.5 K/mm3 (1.7-7.2); Neutrophils Percent Auto 53.9 % (50.0-70.0); Platelet Count Result 229 K/mm3 (150-420); Red Blood Count 4.36 M/mm3 (4.70-6.10); Red Cell Distribution Width 13.2 % (11.6-14.4); White Blood Count 4.7 K/mm3 (4.8-10.8)
[2022-02-05 19:52] LABS: Add Urine Microscopic? YES; Appearance Urine Clear (Clear); Bilirubin Urine Negative (Negative); Blood Urine Negative (Negative); Color Urine Light Yellow (Yellow); Glucose Urine UA 3+ (Negative); Ketones Urine Negative (Negative); Leukocyte Esterase Ur Negative LEU/UL (Negative); Nitrate Urine Negative (Negative); Protein Urine Negative (Negative); Urobilinogen Urine 0.2 mg/dL (0.2-1.0)
[2022-02-05] MEDS: traMADol HCL (*CRX) 50 MG TABLET 100 MG PO (19:54)
[2022-02-05] MEDS: SODIUM CHLORIDE 0.9% IV 1,000 ML 999 ML IV CONT (19:55)
[2022-02-05] MEDS: METOCLOPRAMIDE HCL INJ 10 MG/2 ML VIAL IV PUSH (19:55)
[2022-02-05] MEDS: ONDANSETRON INJ 4 MG/2 ML VIAL IV PUSH (19:55)
[2022-02-05 20:00] LABS: Amphetamine Screen Urine Positive (Negative); Barbiturate Screen Urine Negative (Negative); Benzodiazepines Screen Urine Negative (Negative); Cannabinoid Screen Urine Positive (Negative); Cocaine Screen Urine Negative (Negative); Methadone Screen Urine Negative (Negative); Opiate Screen Urine Negative (Negative); Phencyclidine Screen Urine Negative (Negative)
[2022-02-05 20:07] LABS: Alanine Aminotransferase 24 U/L (16-63); Alkaline Phosphatase 79 U/L (46-116); Amylase 42 U/L (25-115); Anion Gap 11 mmol/L (8-16); Aspartate Amino Transferase < 10 U/L (15-37); Bilirubin,Total 0.2 mg/dL (0.00-1.00); Blood Urea Nitrogen 18 mg/dL (7-18); Calcium 8.9 mg/dL (8.5-10.1); Carbon Dioxide 27 mmol/L (21-32); Chloride 98 mmol/L (98-108); Estimated CRCL calculation 85 ml/min; Estimated Glomerular Filt Rate 59; Ethanol < 3 mg/dL (0-6); Glucose 307 mg/dL (70-99); Lipase 16 U/L (16-77); Magnesium 1.9 mg/dL (1.8-2.4); Osmolality Calculated 295 mOsm/kg (285-295); RBC Urine 0-2 /hpf (0-2); Sodium 136 mmol/L (136-145); Total Protein 7.8 g/dL (6.4-8.2); WBC Urine 0-3 /hpf (0-3)
[2022-02-05 20:08] LABS: Bacteria Urine Trace /hpf
[2022-02-05 20:10] LABS: Acetone Negative (Negative)
[2022-02-05 20:35] LABS: Glucose Point of Care 242 mg/dl (65-105)
[2022-02-05] MEDS: HYDROmorphone HCL INJ (*CRX) 2 MG/ML VIAL 0.5 MG IV PUSH (20:40)
[2022-02-05 21:13] VITALS: BP 120/80; PULSE 80; RESP 18; TEMP 37; O2SAT 100
[2022-02-05 21:17] LABS: Glucose Point of Care 237 mg/dl (65-105)
== END 2022-02-05 21:18 | disposition home or self-care (01) ==
PROVIDERS: Emergency Provider Emergency Medicine
DX: E10.65 Type 1 diabetes mellitus with hyperglycemia (principal); K86.1 Other chronic pancreatitis; R10.9 Unspecified abdominal pain; G89.29 Other chronic pain; E10.22 Type 1 diabetes mellitus with diabetic chronic kidney disease; N18.9 Chronic kidney disease, unspecified; F15.10 Other stimulant abuse, uncomplicated; F32.A Depression, unspecified; F41.9 Anxiety disorder, unspecified; F17.220 Nicotine dependence, chewing tobacco, uncomplicated; Z79.4 Long term (current) use of insulin
CPT/HCPCS: 36415; 80053; 80307; 81001; 82010; 82150; 82948; 83690; 83735; 85025; 96361; 96374; 96375; 99284; A9270; J1170; J2405; J2765; J7030

== ENCOUNTER 2022-02-19 00:34 | Emergency (ER) | payer OTHER, SELFPAY ==
--- NOTE | ~2022-02-19 | XR_ITS ---
AP and oblique views of the right ribs Clinical History: Pain Findings: No rib fracture is seen. Osseous alignment is anatomic. Lungs are clear, without focal cons olidation or pleural effusion. Cardiomediastinal contour is within normal limits. Soft tissues are un remarkable. Impression: No rib fracture is seen. Reviewed, dictated and finalized at [facility]. ACT OFFICER Impression: No rib fracture is seen.
--- NOTE | 2022-02-19 00:46 | ED.GENADULT ---
HPI - General Adult General Chief complaint: Unspecified Stated complaint: side pain Time Seen by Provider: 02/19/22 00:44 Source: patient and RN notes reviewed Mode of arrival: ambulatory Limitations: no limitations History of Present Illness HPI narrative: patient states that he was at home playing with his children when 1 of them jumped on his right rib cage in the lower part of his chest he had sudden acute onset of pain and it continues to hurt him. He is concerned about rib fracture. complaint: rib pain Onset (ago): hour(s) (1) Location: chest Radiation: non-radiation Severity: moderate Quality: stabbing and sharp Pain Consistency: constant Relieving factors: none Exacerbating factors: movement Associated symptoms: shortness of breath ( Hurts to take a deep breath) Related Data Home Medications Medication Instructions Recorded Confirmed bupropion HCl 150 mg 24 hr tablet, 150 mg PO BID 08/20/19 02/19/22 extended release insulin lispro See Rx Instructions .Route .COMPLEX 08/20/19 02/19/22 buspirone 10 mg tablet See Rx Instructions .Route .COMPLEX 11/09/19 02/19/22 famotidine 40 mg tablet 40 mg PO DAILY 11/09/19 02/19/22 dextroamphetamine-amphetamine ER 15 mg PO DAILY 10/25/20 02/19/22 15 mg 24hr capsule,extend release pregabalin 150 mg capsule 150 mg PO QPM 04/15/21 02/19/22 paliperidone palmitate 234 mg/1.5 234 mg IM Q30D 06/09/21 02/19/22 mL intramuscular syringe (Invega Sustenna) Allergies Allergy/AdvReac Type Severity Reaction Status Date / Time No Known Allergies Allergy Verified 02/05/22 18:52 Review of Systems Review of Systems: All systems reviewed & are unremarkable except as noted in HPI and below PMFSH Past Medical History Medical History Alcoholic pancreatitis Bipolar disorder Depression with anxiety DM type 2 (diabetes mellitus, type 2) OCD (obsessive compulsive disorder) Tourettes disease Surgical History Surgical History Hx of appendectomy Social History Social History Smokeless tobacco user: chewing tobacco Alcohol intake: former Substance use: never Gender identity (if verbalized by the patient): Male Exam Const: General: healthy appearing, no acute distress and alert Nutritional Appearance: well nourished Orientation/consciousness: patient oriented x3 Limitations: no limitations HENMT: Head: normal to inspection Ears: external ears normal Eyes: Conjunctivae: conjunctivae normal Pupils: Equal, round and reactive pupils present EOM: EOMs intact bilaterally Neck: Neck: normal visual inspection Chest: Chest palpation & inspection: crepitus rib right mid-clavicular line involving the 9th rib and involving the 10th rib and localized rib tenderness with anteroposterior compression right mid-clavicular line involving the 9th rib and involving the 10th rib Resp: Effort & Inspection: normal respiratory effort Auscultation: clear to auscultation bilaterally Cardio: Rate: regular rate Rhythm: regular rhythm GI: GI Palp: Yes Soft to palpation and No Tenderness to palpation present (GI) Auscultation: normal bowel sounds Back/Spine/Pelvis: Cervical Spine: cervical ROM normal Thoracic/Lumbar Spine: thoraco-lumbar ROM normal Skin: General skin exam: normal color Rashes: no rashes Neuro: General: patient oriented x3, moves all extremities, no focal motor deficits and CN's II-XI intact bilaterally Speech: normal speech Gait exam (Neuro): Normal gait present Extrem: General: normal to inspection and no clubbing, cyanosis or edema Psych: Mental Status: mental status grossly normal Affect: normal affect Attitude: cooperative Course Vital Signs Vital signs: Vital Signs Temperature 36.7 C 02/19/22 00:53 Pulse Rate 115 H 02/19/22 00:53 Respiratory Rate 16 02/19/22 00:53 Blood Pres
[2022-02-19 00:53] VITALS: BP 120/84; PULSE 115; RESP 16; TEMP 36.7; O2SAT 97
[2022-02-19] MEDS: ACETAMINOPHEN/CODEINE (*CRX) 300/30 MG TABLET 1 TAB PO (01:43)
[2022-02-19 01:45] VITALS: BP 119/108; PULSE 99; RESP 20; O2SAT 96
== END 2022-02-19 01:51 | disposition home or self-care (01) ==
LOC: CHSED 01:29
PROVIDERS: Emergency Provider Emergency Medicine
DX: S22.31XA Fracture of one rib, right side, initial encounter for closed fracture (principal); W51.XXXA Accidental striking against or bumped into by another person, initial encounter; E11.9 Type 2 diabetes mellitus without complications; F95.2 Tourette's disorder; F42.8 Other obsessive-compulsive disorder; F31.9 Bipolar disorder, unspecified; Z79.4 Long term (current) use of insulin; Z79.899 Other long term (current) drug therapy; F17.220 Nicotine dependence, chewing tobacco, uncomplicated
CPT/HCPCS: 71100; 99283; A9270

== ENCOUNTER 2022-08-01 08:38 | Emergency (ER) | payer OTHER, SELFPAY ==
[2022-08-01 08:38] VITALS: BP 122/71; PULSE 98; RESP 18; TEMP 36.3; O2SAT 97
--- NOTE | 2022-08-01 08:58 | ED.WOUNDLAC ---
HPI - Wound/Laceration General Chief Complaint: Wound/Laceration Stated Complaint: left upper thigh and buttocks skin infection Time Seen by Provider: 08/01/22 08:57 Source: patient Mode of arrival: ambulatory Limitations: no limitations History of Present Illness HPI narrative: 32-year-old male with a history of alcoholic pancreatitis/ chronic pancreatitis, chronic abdominal pain,bipolar disorder, OCD, Tourette's disease,diabetes mellitus on a diabetic pump presents to the ER with 7 day history of -- left buttock has 2 areas of cellulitis. First measures 3 cm and the 2nd measures 7 cm which is erythematous with underlying firmness. -- history of MRSA. History of recurrent abscesses/ cellulitis. Last was noted on his leg last year. No fever or chills Last tetanus immunization was received in 2017. Patient has not been using his diabetic insulin pump for the past 4-5 days for technical reasons. Onset (ago): day(s) ( Seven days) Location: other ( left buttock) Body four view annotation: 1. 3 cm erythematous area with underlying firmness. Tender on palpation 2. 7 cm erythematous lesion with underlying firmness and tenderness Place: home Patient tetanus UTD: No Context: accidental Associated symptoms: pain Related Data Home Medications Medication Instructions Recorded Confirmed bupropion HCl 150 mg 24 hr tablet, 150 mg PO BID 08/20/19 08/01/22 extended release insulin lispro See Rx Instructions .Route .COMPLEX 08/20/19 08/01/22 buspirone 10 mg tablet See Rx Instructions .Route .COMPLEX 11/09/19 08/01/22 famotidine 40 mg tablet 40 mg PO DAILY 11/09/19 08/01/22 dextroamphetamine-amphetamine ER 15 mg PO DAILY 10/25/20 08/01/22 15 mg 24hr capsule,extend release pregabalin 150 mg capsule 150 mg PO QPM 04/15/21 08/01/22 paliperidone palmitate 234 mg/1.5 234 mg IM Q30D 06/09/21 08/01/22 mL intramuscular syringe (Invega Sustenna) Allergies Allergy/AdvReac Type Severity Reaction Status Date / Time No Known Allergies Allergy Verified 08/01/22 08:51 Review of Systems Review of Systems: All systems reviewed & are unremarkable except as noted in HPI and below Constitutional: Constitutional: Reports as per HPI and Reports no additional constitutional complaints Eyes: Eyes: Reports as per HPI and Reports no additional eye complaints ENT: Reports system reviewed and no additional complaints, except as documented and Reports as per HPI Cardiovascular: Cardiovascular: Reports as per HPI and Reports no additional cardiovascular complaints Respiratory: Respiratory: Reports as per HPI and Reports no additional respiratory complaints Gastrointestinal: Gastrointestinal: Reports as per HPI, Reports no additional gastrointestinal complaints and Reports diarrhea Genitourinary: Genitourinary: Reports no additional male genitourinary complaints and Reports as per HPI Musculoskeletal: Musculoskeletal: Reports no additional musculoskeletal complaints and Reports as per HPI Integumentary/Breasts: Skin/Breast: Reports system reviewed and no additional complaints, except as docu and Reports as per HPI Comments: cellulitis involving the left buttock Neurologic: Reports system reviewed and no additional complaints, except as documented and Reports as per HPI Psychiatric: Psychiatric: Reports no additional psychiatric complaints and Reports as per HPI Endocrine: Endocrine: Reports no additional endocrine complaints and Reports as per HPI Hematologic/Lymphatic: Hematologic/Lymphatic: Reports no additional hematologic/lymphatic complaints and Reports as per HPI PMFSH Past Medical History Medical History Alcoholic pancreatitis Bipolar disorder Depression with anxiety DM type 2 (diabetes mellitus, type 2) OCD (obsessive compulsive disorder) Tourettes disease Surgical History Surgical History Hx o
[2022-08-01 09:38] LABS: Basophils Absolute Auto 0.05 K/mm3 (0.00-0.10); Basophils Percent Auto 0.8 % (0.0-1.0); Eosinophils Absolute Auto 0.13 K/mm3 (0.02-0.50); Eosinophils Percent Auto 2.2 % (1.0-6.0); Hematocrit 40.9 % (40.0-54.0); Hemoglobin 13.7 g/dL (14.0-18.0); Immature Granulocyte Absolute 0.02 K/mm3 (0.00-0.00); Immature Granulocyte Percent A 0.3 % (0.0-0.0); Lymphocytes Absolute Auto 1.57 K/mm3 (1.10-4.50); Lymphocytes Percent Auto 26.4 % (18.0-42.0); Mean Corpuscular HGB Conc 33.5 g/dL (32.0-36.0); Mean Corpuscular Hemoglobin 31.6 pg (27.0-31.0); Mean Corpuscular Volume 94.2 fL (78.0-102.0); Mean Platelet Volume 9.3 fl (8.7-11.0); Monocytes Absolute Auto 0.39 K/mm3 (0.10-0.90); Monocytes Percent Auto 6.6 % (2.0-11.0); Neutrophils Absolute Auto 3.8 K/mm3 (1.7-7.2); Neutrophils Percent Auto 63.7 % (50.0-70.0); Platelet Count Result 234 K/mm3 (150-420); Red Blood Count 4.34 M/mm3 (4.70-6.10); Red Cell Distribution Width 12.2 % (11.6-14.4); White Blood Count 5.9 K/mm3 (4.8-10.8)
[2022-08-01 09:52] LABS: INR 0.9; Prothrombin Time 9.8 Seconds (9.50-12.10)
[2022-08-01 09:54] LABS: Alanine Aminotransferase 29 U/L (16-63); Albumin Level 3.5 g/dL (3.4-5.0); Alkaline Phosphatase 103 U/L (46-116); Anion Gap 14 mmol/L (8-16); Aspartate Amino Transferase 18 U/L (15-37); Bilirubin,Total 0.4 mg/dL (0.00-1.00); Blood Urea Nitrogen 16 mg/dL (7-18); Calcium 9.4 mg/dL (8.5-10.1); Carbon Dioxide 23 mmol/L (21-32); Chloride 97 mmol/L (98-108); Estimated CRCL calculation 116 ml/min; Estimated Glomerular Filt Rate > 60; Glucose 296 mg/dL (70-99); Osmolality Calculated 290 mOsm/kg (285-295); Potassium 4.5 mmol/L (3.5-5.1); Sodium 134 mmol/L (136-145); Total Protein 7.5 g/dL (6.4-8.2)
[2022-08-01 09:55] LABS: Lipase 16 U/L (16-77)
[2022-08-01 10:03] LABS: Appearance Urine Clear (Clear); Bilirubin Urine Negative (Negative); Blood Urine Negative (Negative); Color Urine Light Yellow (Yellow); Glucose Urine UA 2+ (Negative); Ketones Urine Negative (Negative); Leukocyte Esterase Ur Negative LEU/UL (Negative); Nitrate Urine Negative (Negative); Protein Urine Negative (Negative); Specific Grav Ur >= 1.030 (1.010-1.020); Urobilinogen Urine 0.2 mg/dL (0.2-1.0)
[2022-08-01] MEDS: TETANUS,DIPHTHERIA,AC PERTUSSIS ADULT 0.5 ML (ADACEL) IM (10:06)
[2022-08-01 10:08] LABS: Add Urine Microscopic? YES; RBC Urine None seen /hpf (0-2); WBC Urine None seen /hpf (0-3)
[2022-08-01 10:09] LABS: Bacteria Urine Trace /hpf; Mucus Urine Few /lpf; Squamous Epithelial Cell Urine Rare /hpf (Few)
[2022-08-01 10:16] LABS: Lactic Acid Reflex 1.9 mmol/L (0.4-2.0)
[2022-08-01 10:28] VITALS: BP 121/73; PULSE 95; RESP 17; TEMP 36.6; O2SAT 98
--- NOTE | 2022-08-07 14:14 | PC.NURSE ---
final blood culture reports x2 reviewed. no growth after 5 days. no change in plan of care.
== END 2022-08-01 10:28 | disposition home or self-care (01) ==
PROVIDERS: Emergency Provider Internal Medicine Critical Care Medicine
DX: L03.317 Cellulitis of buttock (principal); E11.65 Type 2 diabetes mellitus with hyperglycemia; K86.0 Alcohol-induced chronic pancreatitis; F32.A Depression, unspecified; F41.9 Anxiety disorder, unspecified; F17.220 Nicotine dependence, chewing tobacco, uncomplicated; Z79.4 Long term (current) use of insulin; Z23 Encounter for immunization
CPT/HCPCS: 36415; 80053; 81001; 83605; 83690; 85025; 85610; 87040; 90471; 90715; 99283

== ENCOUNTER 2022-12-25 13:45 | Emergency (ER) | payer OTHER, SELFPAY ==
--- NOTE | ~2022-12-25 | XR_ITS ---
EXAMINATION: XR foot RT min 3V DATE: 12/25/2022 14:16 INDICATION: Pain and bruising at the right great toe post fall TECHNIQUE: Dorsoplantar, two oblique and lateral views of the right foot were obtained. COMPARISON: None. FINDINGS: There is a nondisplaced oblique intra-articular fracture extending from the lateral side of the proxi mal metaphyseal region of the first proximal phalanx to the medial margin of the distal articular brandon face. No significant fracture gap or incongruity at the articular surface. Alignment remains essentia lly anatomic. No other fractures identified. Joint spaces are normal. Soft tissue swelling about the great toe and over the dorsum of the forefoot IMPRESSION: 1. Nondisplaced intra-articular fracture of the right first proximal phalanx. Reviewed, dictated and finalized at location A. RUMENT OPERATOR
[2022-12-25 13:45] VITALS: BP 111/70; PULSE 107; RESP 18; TEMP 36.4; O2SAT 97
[2022-12-25] MEDS: TETANUS,DIPHTHERIA,AC PERTUSSIS ADULT 0.5 ML (ADACEL) IM (14:10)
[2022-12-25] MEDS: KETOROLAC (*BKC) 60 MG/2 ML VIAL IM (14:10)
--- NOTE | 2022-12-25 14:20 | ED.LOWEXIN ---
HPI - Extremity Injury (Lower) General Chief Complaint: Extremity Injury, Lower Stated Complaint: right foot injury Source: patient Mode of arrival: wheelchair Limitations: no limitations History of Present Illness HPI Narrative: this is a 32-year-old male who presents with a right large toe pain after he tripped 1 year injuring his right large toe, there is some bruising and swelling and pain with movement of his right large toe. The patient does have a history of neuropathy secondary to diabetes. But has good brisk pedal pulse the right no other injuries except abrasions to his knee otherwise any has good range of motion. complaint: foot injury Onset (ago): day(s) Injury: Right: toes ( large toe with bruising and swelling) Type of Injury: blunt Place: street/outdoors Severity: moderate Severity scale (1-10): 7 Relieving factors: immobilization Exacerbating factors: weight bearing and movement Context: fall Related Data Home Medications Medication Instructions Recorded Confirmed bupropion HCl 150 mg 24 hr tablet, 150 mg PO BID 08/20/19 12/25/22 extended release insulin lispro See Rx Instructions .Route .COMPLEX 08/20/19 12/25/22 buspirone 10 mg tablet See Rx Instructions .Route .COMPLEX 11/09/19 12/25/22 famotidine 40 mg tablet 40 mg PO DAILY 11/09/19 12/25/22 dextroamphetamine-amphetamine ER 15 mg PO DAILY 10/25/20 12/25/22 15 mg 24hr capsule,extend release pregabalin 150 mg capsule 150 mg PO QPM 04/15/21 12/25/22 paliperidone palmitate 234 mg/1.5 234 mg IM Q30D 06/09/21 12/25/22 mL intramuscular syringe (Invega Sustenna) Allergies Allergy/AdvReac Type Severity Reaction Status Date / Time No Known Allergies Allergy Verified 12/25/22 13:53 Review of Systems Review of Systems: All systems reviewed & are unremarkable except as noted in HPI and below PMFSH Past Medical History Medical History Alcoholic pancreatitis Bipolar disorder Depression with anxiety DM type 2 (diabetes mellitus, type 2) OCD (obsessive compulsive disorder) Tourettes disease Surgical History Surgical History Hx of appendectomy Social History Social History Smokeless tobacco user: chewing tobacco Alcohol intake: former Substance use: never Gender identity (if verbalized by the patient): Male Exam Const: General: healthy appearing and no acute distress Nutritional Appearance: well nourished Orientation/consciousness: patient oriented x3 Limitations: no limitations Neck: Neck: normal visual inspection Chest: Chest palpation & inspection: normal inspection of the chest Resp: Effort & Inspection: normal respiratory effort Auscultation: clear to auscultation bilaterally Cardio: Rate: regular rate Rhythm: regular rhythm GI: GI Palp: Yes Soft to palpation Skin: Wounds: wounds noted Other: Abrasions over his knee as well as bruising on the right distal foot and large toe with swelling and decreased range of motion secondary to pain and swelling Neuro: General: patient oriented x3 Extrem: Other: bruising and swelling right large toe Course Course Emergency Course: patient with some abrasions on his right knee, and bruising and swelling of his right large toe, patient received 60mg IM Toradol and was updated with his tetanus vaccine. X-ray performed shows acute nondisplaced fracture of the large right toe. Vital Signs Vital signs: Vital Signs Temperature 36.4 C 12/25/22 13:45 Pulse Rate 107 H 12/25/22 13:45 Respiratory Rate 18 12/25/22 13:45 Blood Pressure 111/70 12/25/22 13:45 Pulse Oximetry 97 12/25/22 13:45 Oxygen Delivery Room Air 12/25/22 13:45 Temperature 36.4 C 12/25/22 13:45 Pulse Rate 107 H 12/25/22 13:45 Respiratory Rate 18 12/25/22 13:45 Blood Pressure 111/70
== END 2022-12-25 14:39 | disposition home or self-care (01) ==
PROVIDERS: Emergency Provider Emergency Medicine
DX: S92.424A Nondisplaced fracture of distal phalanx of right great toe, initial encounter for closed fracture (principal); E11.9 Type 2 diabetes mellitus without complications; F17.220 Nicotine dependence, chewing tobacco, uncomplicated; Z79.899 Other long term (current) drug therapy; Z79.4 Long term (current) use of insulin; Z23 Encounter for immunization; W01.0XXA Fall on same level from slipping, tripping and stumbling without subsequent striking against object, initial encounter
CPT/HCPCS: 73630; 90471; 90715; 96372; 99284; J1885

== ENCOUNTER 2023-07-12 09:55 | Emergency (ER) | payer OTHER, SELFPAY ==
--- NOTE | ~2023-07-12 | XR_ITS ---
EXAMINATION: XR chest 2V DATE: 07/12/2023 10:11 INDICATION: Shortness of breath. Cough and wheezing. TECHNIQUE: Frontal and lateral views of the chest were obtained. COMPARISON: Chest 2 views 09/07/2021 FINDINGS: There is no pneumonia, pleural effusion, or pneumothorax. The heart size is normal. IMPRESSION: 1. No acute cardiopulmonary disease. Reviewed, dictated and finalized at location E.
--- NOTE | 2023-07-12 09:58 | ED.URI ---
HPI - URI/Sore Throat General Chief Complaint: Upper Respiratory Infection Stated Complaint: URI Time Seen by Provider: 07/12/23 09:58 Source: patient Mode of arrival: ambulatory Limitations: no limitations History of Present Illness HPI Narrative: Patient is a 33-year-old male with a cough and congestion and sore throat for the past 4 days. He is associated with having some shortness of breath as well. He has no asthma. No cardiac or chest pain issues. MD elicited complaint: cough, sore throat, rhinorrhea and nasal congestion Onset (ago): day(s) (4) Consistency: constant Severity: moderate Pain scale (0-10): 5 Description of mucous: yellow Able to tolerate fluids by mouth: Yes Exacerbating factors: nothing Relieving factors: nothing Associated symptoms: rhinorrhea, nasal congestion, sore throat, cough and shortness of breath Treatments prior to arrival: none Related Data Home Medications Medication Instructions Recorded Confirmed bupropion HCl 150 mg 24 hr tablet, 150 mg PO BID 08/20/19 12/25/22 extended release insulin lispro See Rx Instructions .Route .COMPLEX 08/20/19 12/25/22 buspirone 10 mg tablet See Rx Instructions .Route .COMPLEX 11/09/19 12/25/22 famotidine 40 mg tablet 40 mg PO DAILY 11/09/19 12/25/22 dextroamphetamine-amphetamine ER 15 mg PO DAILY 10/25/20 12/25/22 15 mg 24hr capsule,extend release pregabalin 150 mg capsule 150 mg PO QPM 04/15/21 12/25/22 paliperidone palmitate 234 mg/1.5 234 mg IM Q30D 06/09/21 12/25/22 mL intramuscular syringe (Invega Sustenna) Allergies Allergy/AdvReac Type Severity Reaction Status Date / Time No Known Allergies Allergy Verified 12/25/22 13:53 Review of Systems Review of Systems: All systems reviewed & are unremarkable except as noted in HPI and below Constitutional: Constitutional: Reports no additional constitutional complaints Eyes: Eyes: Reports no additional eye complaints ENT: Reports system reviewed and no additional complaints, except as documented Cardiovascular: Cardiovascular: Reports no additional cardiovascular complaints Respiratory: Respiratory: Reports no additional respiratory complaints Gastrointestinal: Gastrointestinal: Reports no additional gastrointestinal complaints Genitourinary: Genitourinary: Reports no additional male genitourinary complaints Musculoskeletal: Musculoskeletal: Reports no additional musculoskeletal complaints Integumentary/Breasts: Skin/Breast: Reports system reviewed and no additional complaints, except as docu Neurologic: Reports system reviewed and no additional complaints, except as documented Psychiatric: Psychiatric: Reports no additional psychiatric complaints Endocrine: Endocrine: Reports no additional endocrine complaints Hematologic/Lymphatic: Hematologic/Lymphatic: Reports no additional hematologic/lymphatic complaints Allergic/Immunologic: Allergic/Immunologic: Reports no additional allergic/immunologic complaints PMFSH Past Medical History Medical History Alcoholic pancreatitis Bipolar disorder Depression with anxiety DM type 2 (diabetes mellitus, type 2) OCD (obsessive compulsive disorder) Tourettes disease Surgical History Surgical History Hx of appendectomy Social History Social History Smokeless tobacco user: chewing tobacco Alcohol intake: former Substance use: never Gender identity (if verbalized by the patient): Male Exam Const: General: ill appearing Nutritional Appearance: well nourished Orientation/consciousness: patient oriented x3 HENMT: Head: normal to inspection Ears: external ears normal Face/Nose/Sinus: Normal external nose present Eyes: Conjunctivae: conjunctivae normal Pupils: Equal, round and reactive pupils present EOM: EOMs intact bilaterally Neck: Neck: normal visua
[2023-07-12 10:01] VITALS: BP 120/89; PULSE 117; RESP 20; TEMP 36.6; O2SAT 96
[2023-07-12 10:17] VITALS: O2SAT 96
[2023-07-12 10:47] LABS: Influenza A QL RT-PCR Negative (Negative); Influenza B QL RT-PCR Negative (Negative); RSV RNA, RT-PCR Negative (Negative); SARS-CoV-2 RNA PCR Negative (Negative)
[2023-07-12 11:05] VITALS: BP 122/86; PULSE 105; RESP 20; TEMP 36.7; O2SAT 97
== END 2023-07-12 11:05 | disposition home or self-care (01) ==
PROVIDERS: Emergency Provider Emergency Medicine
DX: J40 Bronchitis, not specified as acute or chronic (principal); F31.9 Bipolar disorder, unspecified; E11.9 Type 2 diabetes mellitus without complications; F95.2 Tourette's disorder; Z87.891 Personal history of nicotine dependence; Z20.822 Contact with and (suspected) exposure to COVID-19
CPT/HCPCS: 71046; 87637; 99283

== ENCOUNTER 2023-11-09 01:08 | Emergency (ER) | payer OTHER, SELFPAY ==
--- NOTE | ~2023-11-09 | XR_ITS ---
Right Forearm AP and lateral views of the right forearm were performed. Clinical History: Injury Findings: No fracture or dislocation is seen. Osseous alignment in anatomic. Joint spaces are prese rved. Soft tissues are unremarkable. Impression: Unremarkable exam. Reviewed, dictated and finalized at location M. Impression: Unremarkable exam.
[2023-11-09 01:10] VITALS: BP 108/62; PULSE 75; RESP 20; TEMP 36.4; O2SAT 97
--- NOTE | 2023-11-09 01:40 | ED.GENADULT ---
HPI - General Adult General Chief complaint: Extremity Injury, Upper Stated complaint: R arm injury Time Seen by Provider: 11/09/23 01:15 Source: patient Mode of arrival: ambulatory Limitations: no limitations History of Present Illness HPI narrative: 33-year-old white male history of Tourette syndrome was in bed and punched his own right forearm with his left fist. This occurred an hour prior to coming to the emergency department he said he felt a pop. Denies any pain in his neck shoulder elbow wrist or hand. Discussed small bruise on the volar aspect of his right forearm. Denies any other injuries. Denies any numbness or tingling or loss of function of his right upper extremity. Denies any problems walking talking seeing or hearing eating or drinking voiding or stooling rash or itching bleeding or bruising dizziness or lightheadedness or any other complaint. Says he is applying for disability for his Tourette syndrome. Related Data Home Medications Medication Instructions Recorded Confirmed bupropion HCl 150 mg 24 hr tablet, 150 mg PO BID 08/20/19 12/25/22 extended release insulin lispro See Rx Instructions .Route .COMPLEX 08/20/19 12/25/22 buspirone 10 mg tablet See Rx Instructions .Route .COMPLEX 11/09/19 12/25/22 dextroamphetamine-amphetamine ER 15 mg PO DAILY 10/25/20 12/25/22 15 mg 24hr capsule,extend release pregabalin 150 mg capsule 300 mg PO BID 04/15/21 12/25/22 blood-glucose sensor (Guardian 07/12/23 07/12/23 Sensor 3 device) bupropion HCl 200 mg tablet,12 hr 200 mg PO BID 07/12/23 07/12/23 sustained-release buspirone 15 mg tablet 15 mg PO TID 07/12/23 07/12/23 insulin lispro 100 unit/mL See Rx Instructions .Route .COMPLEX 07/12/23 07/12/23 subcutaneous solution (Admelog U-100 Insulin lispro) lisinopril 10 mg tablet 10 mg PO DAILY 07/12/23 07/12/23 metoclopramide HCl 10 mg tablet 10 mg PO DAILY 07/12/23 07/12/23 paliperidone palmitate 234 mg/1.5 234 mg IM MONTHLY 07/12/23 07/12/23 mL intramuscular syringe (Invega Sustenna) pantoprazole 40 mg tablet,delayed 40 mg PO DAILY 07/12/23 07/12/23 release Allergies Allergy/AdvReac Type Severity Reaction Status Date / Time No Known Allergies Allergy Verified 12/25/22 13:53 Review of Systems Review of Systems: All systems reviewed & are unremarkable except as noted in HPI and below PMFSH Past Medical History Medical History Alcoholic pancreatitis Bipolar disorder Depression with anxiety DM type 2 (diabetes mellitus, type 2) OCD (obsessive compulsive disorder) Tourettes disease Surgical History Surgical History Hx of appendectomy Social History Social History Smokeless tobacco user: chewing tobacco Alcohol intake: former Substance use: never Gender identity (if verbalized by the patient): Male Exam Narrative: White male patient with no apparent distress.? Head normocephalic, atraumatic.? Eyes conjunctiva pink sclera nonicteric.? Extraocular movements are intact.? Ears externally normal.? ? Extremities no cyanosis clubbing or edema.? Right forearm mild tenderness mid forearm with a small bruise. His neck right upper extremity shoulder elbow wrist and hand are normal with full range of motion. Neurovascular intact the right upper extremity. Skin is warm and dry without rashes or lesions.? Neurological patient is alert and oriented x4.? Motor and sensory grossly intact.? Gait is normal. Course Vital Signs Vital signs: Vital Signs Temperature 36.4 C L 11/09/23 01:10 Pulse Rate 75 11/09/23 01:10 Respiratory Rate 20 11/09/23 01:10 Blood Pressure 108/62 11/09/23 01:10 Pulse Oximetry 97 11/09/23 01:10 Oxygen Delivery Room Air 11/09/23 01:10 Temperature 36.4 C L 11/09/23 01:10 Pulse Rate 75 11/09/23 01:10 Resp
[2023-11-09] MEDS: KETOROLAC 30 MG/ML VIAL (*BKC) IM (01:43)
[2023-11-09 01:59] VITALS: BP 118/71; PULSE 75; RESP 18; TEMP 36.6; O2SAT 97
== END 2023-11-09 01:59 | disposition home or self-care (01) ==
PROVIDERS: Emergency Provider Emergency Medicine
DX: S50.11XA Contusion of right forearm, initial encounter (principal); F95.2 Tourette's disorder; E11.9 Type 2 diabetes mellitus without complications; W22.8XXA Striking against or struck by other objects, initial encounter
CPT/HCPCS: 73090; 96372; 99283; J1885

== ENCOUNTER 2024-02-02 12:55 | Emergency (ER) | payer SELFPAY ==
[2024-02-02 13:09] VITALS: BP 119/72; PULSE 93; RESP 16; TEMP 36.4; O2SAT 99
--- NOTE | 2024-02-02 13:39 | ED.ABDPAIN ---
HPI - Abdominal Pain General Chief Complaint: Abdominal Pain Stated Complaint: Abdominal Pain/Rib Pain Source: patient Mode of arrival: ambulatory Limitations: no limitations History of Present Illness HPI narrative: Patient presents for evaluation of left-sided abdominal pain. Symptom onset last . 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 Pain is constant, sharp, 6/10 severity. A denies any fever, chills, nausea, vomiting. He has chronic diarrhea which is unchanged from his baseline. 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 He subsequently developed diabetes and has an insulin pump. He has not been wearing his pump as of today because he is ?lazy? per his report. He did check his BS today and it was in the 230's. He indicates he has experienced rib fracture in the past. Related Data Home Medications ?Medication ?Instructions ?Recorded ?Confirmed ?Last Taken ?Type insulin lispro See Rx Instructions .Route .COMPLEX 08/20/19 02/02/24 Unknown History buspirone 10 mg tablet See Rx Instructions .Route .COMPLEX 11/09/19 02/02/24 Unknown History dextroamphetamine-amphetamine ER 15 mg PO DAILY 10/25/20 02/02/24 Unknown History 15 mg 24hr capsule,extend release pregabalin 150 mg capsule 300 mg PO BID 04/15/21 02/02/24 Unknown History blood-glucose sensor (Guardian 07/12/23 07/12/23 Unknown History Sensor 3 device) bupropion HCl 200 mg tablet,12 hr 200 mg PO BID 07/12/23 02/02/24 Unknown History sustained-release buspirone 15 mg tablet 15 mg PO TID 07/12/23 02/02/24 Unknown History insulin lispro 100 unit/mL See Rx Instructions .Route .COMPLEX 07/12/23 02/02/24 Unknown History subcutaneous solution (Admelog U-100 Insulin lispro) lisinopril 10 mg tablet 10 mg PO DAILY 07/12/23 02/02/24 Unknown History metoclopramide HCl 10 mg tablet 10 mg PO DAILY 07/12/23 07/12/23 Unknown History paliperidone palmitate 234 mg/1.5 234 mg IM MONTHLY 07/12/23 02/02/24 Unknown History mL intramuscular syringe (Invega Sustenna) pantoprazole 40 mg tablet,delayed 40 mg PO DAILY 07/12/23 02/02/24 Unknown History release Allergies Allergy/AdvReac Type Severity Reaction Status Date / Time Iodinated Contrast Media Allergy Unknown Unknown Verified 02/02/24 13:11 Review of Systems Review of Systems: CONSTITUTIONAL: Denies fever, chills, or sweats. EYES: Denies visual changes, redness, or discharge. ENT: Denies rhinorrhea, congestion, sore throat, or otalgia. CARDIOVASCULAR: Denies chest pain, palpitations, or edema. RESPIRATORY: Denies cough or dyspnea. GASTROINTESTINAL: Reports left-sided pain. Denies nausea, vomiting and diarrhea. GENITOURINARY: Denies dysuria or hematuria. SKIN: Denies rash or itching. MUSCULOSKELETAL: Denies back pain, joint pain, or myalgia. NEUROLOGIC: Denies headache, numbness, dizziness, or weakness. PSYCHIATRIC: Denies anxiety or depression. 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 HEAD: Normocephalic, atraumatic. EYES: PERRLA and EOMI. ENT: Nares clear, no rhinorrhea or epistaxis. Mucous membranes moist. Oropharynx without tonsillar hypertrophy exudate or other lesions. Bilateral TMs pearly padilla nonbulging NECK: Supple. No adenopathy or masses. No carotid bruits or JVD CHEST: Clear to auscultation. No respiratory distress. No wheezes rales or rhonchi HEART: Regular rate and rhythm. No murmur heard. Normal peripheral pulses. ABDOMEN: Soft, nondistended, normal active bowel sounds. LUQ is tender. He has guarding EXTREMITIES: Normal range of motion. No edema. SKIN: Warm, dry, no rash. NEURO: No focal deficits. Alert and oriented x3. PSYCH: Normal mood and affect. Course Course Emergency Course: This is a 33-year-old male who presented for evaluation of left-sided abdominal pain. He is extremely tender on exam. I recommended he go to the hospital for further evaluation. [facility] is his facility of choice. I contacted the ER at [facility] and spoke with RN, Марина. She indicated that Dr Membreno would accept pt for transfer to the Dept there. Patient transferred via private vehicle. Was updated throughout his stay he was in agreement with plan of care, including plans for transfer. Level of Care: Express Care Visit Vital Signs Vital signs: Vital Signs Temperature 36.4 C L 02/02/24 13:09 Pulse Rate 93 02/02/24 13:09 Respiratory Rate 16 02/02/24 13:09 Blood Pressure 119/72 02/02/24 13:09 Pulse Oximetry 99 02/02/24 13:09 Oxygen Delivery Room Air 02/02/24 13:09 Temperature 36.4 C L 02/02/24 13:09 Pulse Rate 93 02/02/24 13:09 Respiratory Rate 16 02/02/24 13:09 Blood Pressure 119/72 02/02/24 13:09 Pulse Oximetry 99 02/02/24 13:09 Oxygen Delivery Room Air 02/02/24 13:09 Discharge Plan Discharge Clinical Impression: Abdominal pain Patient Disposition: Acute Care Hospital Condition: Stable Instructions: Abdominal Pain (ED) Patient Language: Polish Prescriptions: No Action pantoprazole 40 mg tablet,delayed release (DR/EC) 40 mg PO DAILY lisinopril 10 mg tablet 10 mg PO DAILY insulin lispro [Admelog U-100 Insulin lispro] 100 unit/mL solution See Rx Instructions .ROUTE .COMPLEX Rx Instructions: follow directions metoclopramide HCl 10 mg tablet 10 mg PO DAILY buspirone 15 mg tablet 15 mg PO TID bupropion HCl 200 mg tablet sustained-release 12 hr 200 mg PO BID Invega Sustenna 234 mg/1.5 mL syringe 234 mg IM MONTHLY (DME) Guardian Sensor 3 Device MISCELLANEOUS buspirone 10 mg tablet See Rx Instructions .ROUTE .COMPLEX Rx Instructions: as ordered insulin lispro See Rx Instructions .ROUTE .COMPLEX Rx Instructions: INSULIN PUMP sertraline 100 mg tablet 100 mg PO DAILY Qty: 5 0RF pregabalin 150 mg capsule 300 mg PO BID dextroamphetamine-amphetamine 15 mg capsule,extended release 24hr 15 mg PO DAILY Follow-up/Referrals: PHYSICIAN,DESTINATION IMAGINATION COORDINATOR [Primary Care Provider] - Time of Disposition: 13:44
== END 2024-02-02 13:40 | disposition short-term general hospital (02) ==
PROVIDERS: Emergency Provider Nurse Practitioner
DX: R10.12 Left upper quadrant pain (principal); F17.290 Nicotine dependence, other tobacco product, uncomplicated; F17.220 Nicotine dependence, chewing tobacco, uncomplicated; E11.9 Type 2 diabetes mellitus without complications; Z79.4 Long term (current) use of insulin; F41.8 Other specified anxiety disorders
CPT/HCPCS: 99212; G0463